=== PATIENT | female | born 1940 | race Caucasian/White ===

== ENCOUNTER 2017-08-21 11:32 | Emergency (ER) | payer OTHER ==
[~2017-08-21 11:32] MED LIST: AMOX TR-K CLV 875-12; AUGMENTIN 875 M1 TAB PO; LOSARTAN POTASS25 MG PO; METFORMIN HCL500 MG PO; TRAMADOL HCL50 MG; WELLBUTRIN XL150 MG
[2017-08-21 11:59] LABS: ABSOLUTE BASOPHIL COUNT 0 /CUMM (0.0-0.2); ABSOLUTE EOSINOPHIL COUNT 0.1 /CUMM (0.0-0.7); ABSOLUTE GRANULOCYTE CT 5.8 /CUMM (1.4-6.5); ABSOLUTE LYMPH COUNT 1.1 /CUMM (1.2-3.4); ABSOLUTE MONOCYTE COUNT 0.6 /CUMM (0.10-0.60); BASOPHIL % 0.2 % (0.0-2.0); EOSINOPHIL % 1.1 % (0-5); GRANULOCYTE % 76.1 % (42.2-75.2); HEMATOCRIT 45.7 % (37-47); MEAN CORPUSCULAR HGB 32.6 PG (27.0-31.0); MEAN CORPUSCULAR HGB CONC 33.8 G/DL (33.0-37.0); MEAN CORPUSCULAR VOLUME 96.7 FL (81.0-99.0); MEAN PLATELET VOLUME 7.6 FL (7.4-10.4); PLATELET COUNT 179 /CUMM (130-400); RED BLOOD CELL CT 4.73 /CUMM (4.20-5.40); WHITE BLOOD CELL COUNT 7.7 /CUMM (4.8-10.8)
--- NOTE | 2017-08-21 13:57 | ED AMS/SEIZURE/WEAK/DIZZY ---
History of Present Illness General Chief Complaint: General Adult Stated Complaint: ELEVATED BLOOD SUGAR Source: patient Exam Limitations: no limitations Vital Signs & Intake/Output Vital Signs & Intake/Output Vital Signs Date Time Temp Pulse Resp B/P B/P Pulse O2 O2 Flow FiO2 Mean Ox Delivery Rate 08/21 1421 98.3 71 18 159/80 97 Room Air 08/21 1226 Room Air 08/21 1139 98.0 78 20 139/84 97 Allergies Coded Allergies: NO KNOWN ALLERGIES (01/21/12) Reconcile Medications Bupropion Hydrochloride (Wellbutrin XL) 150 MG T24 UNK (Reported) Losartan Potassium 25 MG TABLET 1 TAB PO DAILY UNK (Reported) Metformin Hydrochloride (Metformin HCl) 500 MG TAB 1 TAB PO BID DM (Reported) Triage Note: PER SON CHECKED SUGAR THIS AM, PT WAS "CONFUSED" ARRIVES TO ED ALERT BUT UNSURE OF EVENTS PT IS [place] PT BS AT HOME 198 Triage Nurses Notes Reviewed? yes Onset: Abrupt Duration: hour(s):, resolved prior to arrival Injury Environment: home HPI: 77 -old female is brought into the emergency room for further evaluation of confusion this morning and elevated blood sugar.patient has a history of baseline dementia but the son reports that she seemed to be increasingly confused. No strokelike symptoms have slurring of words or facial drooping. He took her blood sugar level and it was 198 at home. She is on currently 250 mg of metformin daily. She denies any chest pain fever chills vomiting headache lightheaded dizziness or abdominal pain. She has chronic shortness of breath secondary to emphysema. No recent falls or trauma. Denies any urinary symptoms. Comes in for further evaluation. (Timothy Cabello) Past History Travel History Traveled to [place] past 21 day No Medical History Any Pertinent Medical History? 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 No (Timothy Cabello) Review of Systems Review of Systems Constitutional: Reports: see HPI. EENTM: Reports: no symptoms. Respiratory: Reports: no symptoms. Cardiovascular: Reports: no symptoms. GI: Reports: no symptoms. Genitourinary: Reports: no symptoms. Musculoskeletal: Reports: no symptoms. Skin: Reports: no symptoms. Neurological/Psychological: Reports: see HPI. Hematologic/Endocrine: Reports: see HPI. Immunologic/Allergic: Reports: no symptoms. All Other Systems: Reviewed and Negative (Timothy Cabello) Physical Exam Physical Exam General Appearance: alert, awake, thin Head: atraumatic, normal appearance Eyes: Bilateral: normal appearance, EOMI. Ears, Nose, Throat: normal ENT inspection, hearing grossly normal Neck: normal inspection Respiratory: normal breath sounds, no respiratory distress Cardiovascular: regular rate/rhythm Gastrointestinal: soft, non-tender Back: normal inspection Extremities: no edema, normal inspection Neurologic/Psych: awake, alert Skin: intact, normal color Core Measures ACS in differential dx? No CVA/TIA Diagnosis No Sepsis Present: No Sepsis Focused Exam Completed? No (Timothy Cabello) Progress Differential Diagnosis: arrythmia, anemia, benign positional vertigo, CVA/stroke , dehydration, electrolyte imbalance, hypoglycemia, intracranial Hem., pneumonia , presyncope, sepsis, UTI/pyelo Plan of Care: Orders Procedure Date/time Status Consistent Carbohydrate 2 08/21 D Active Add-on Test (ER Only) 08/21 1253 Active EKG 08/21 1253 Active TROPONIN LEVEL 08/21 1146 Complete URINALYSIS 08/21 1142 Complete COMPREHENSIVE METABOLIC PANEL 08/21 1142 Complete CBC WITHOUT DIFFERENTIAL 08/21 1142 Complete ACETONE 08/21 1142 Complete Current Medications Sig/Louisa Start time Last Medication Dose Stop Time Status Admin Sodium Chloride 1,000 ML ONCE ONE 08/21 1400 AC 08/21 (Normal Saline 0.9%) 08/21 2039 1424 Laboratory Tests 08/21/17 1435: Urine Color YEL, Urine Clarity CLEAR, Urine pH 6.0, Ur Specific [place] 1.025, Urine Protein NEG, Urine Ketones NEG, Urine Nitrite NEG, Urine Bilirubin NEG, Urine Urobilinogen 0.2, Ur Leukocyte Esterase SMALL H, Ur Microscopic SEDIMENT EXAMINED, Urine WBC 1-3 H, Ur Epithelial Cells FEW, Urine Bacteria FEW H, Urine Hemoglobin NEG, Urine Glucose NEG 08/21/17 1146: Anion Gap 13, Estimated GFR > 60, BUN/Creatinine Ratio 27.8 H, Glucose 189 H, Calcium 9.7, Total Bilirubin 0.7, AST 28, ALT 35, Alkaline Phosphatase 95, Troponin I < 0.01, Total Protein 6.2 L, Albumin 3.6, Globulin 2.6, Albumin/ Globulin Ratio 1.4, CBC w Diff NO MAN DIFF REQ, RBC 4.73, MCV 96.7, MCH 32.6 H, MCHC 33.8, RDW 14.0, MPV 7.6, Gran % 76.1 H, Lymphocytes % 14.2 L, Monocytes % 8.4, Eosinophils % 1.1, Basophils % 0.2, Absolute Granulocytes 5.8, Absolute Lymphocytes 1.1 L, Absolute Monocytes 0.6, Absolute Eosinophils 0.1, Absolute Basophils 0, Acetone Level NEGATIVE Diagnostic Imaging: Viewed by Me: Radiology Read, CT Scan. Discussed w/RAD: Radiology Read, CT Scan. Radiology Impression: PATIENT: ADELINA FRITZ PRESENT AGE: 77 PATIENT ACCOUNT NO: [id number] : 39 LOCATION: [facility] ORDERING PHYSICIAN: Timothy REEDER SERVICE DATE: 08/21/17 EXAM TYPE : CAT - CT HEAD WO IV CONTRAST EXAMINATION: CT HEAD WITHOUT CONTRAST CLINICAL INFORMATION: Altered mental status. COMPARISON: CT head 02/19/2016. TECHNIQUE: Contiguous axial imaging was performed from the skull base to vertex without intravenous administration of contrast. DLP: 616.59 mGy-cm FINDINGS: There is no acute intracranial hemorrhage or abnormal extra-axial collection. No intracranial mass effect or midline shift. There is disproportionate extra vacuo enlargement of the temporal horns of the lateral ventricles that raises the question of temporal lobe focused neurodegeneration. Ill-defined foci of hypoattenuation are visualized within the periventricular white matter most likely represent a chronic manifestation of small vessel ischemia. Grossly no evidence of acute territorial infarct. The calvarium and skull base are intact. Mastoid air cells and middle ear cavities are well-aerated. Visualized paranasal sinuses are well aerated. IMPRESSION: There is disproportionate enlargement of the temporal horns of the lateral ventricles that appears more pronounced than the findings that were demonstrated on the CT scan of the head from 02/19/2016. 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 Chronic small vessel ischemic changes within the periventricular white matter are redemonstrated. Otherwise no acute finding. No evidence of acute territorial infarct or hemorrhage. DICTATED BY: Hi Tolliver MD DATE/TIME DICTATED:08/21/171402 MANAGER OF GLOBAL:ADONIS DATE/ TIME TRANSCRIBED:08/21/171402 CONFIDENTIAL, DO NOT COPY WITHOUT APPROPRIATE AUTHORIZATION. <Electronically signed in Other Vendor System> SIGNED BY: Hi Tolliver MD 08/21/17 1421 Initial ED EKG: normal sinus rhythm, rate (73), nonspecific ST T wave chg (Timothy Cabello) Departure Departure Disposition: HOME OR SELF CARE Condition: Stable Clinical Impression Primary Impression: Hyperglycemia Secondary Impressions: Confusion Referrals: Gabriel OWEN,Trevon Aj MD,Chapin Lara (PCP/Family) Additional Instructions: Increase metformin to 500 mg daily. Follow-up with primary care doctor. Follow -up with neurologist provided. Return if any other concerns worsening symptoms. Please go over all results of today's visit with your primary care doctor. Contact your primary care doctor to let them know you were here in the emergency room. There may be nonspecific findings which may not be related to your visit today here in the emergency room but may require further evaluation and chronic monitoring by your primary care doctor. If you had a laceration today the chance of foreign body always remains. You should follow-up with your primary care doctor for recheck in 3-5 days for a wound check. If you had an x-ray done there is a chance that a fracture could have been missed on initial read and you should follow-up with your primary care doctor for repeat x-rays if symptoms persist. If your blood pressure was elevated here in the emergency room please have rechecked by [facility] primary care doctor within the next 48. If you were prescribed a narcotic here in the emergency room or any type of controlled substances you're not allowed to drive while taking this medication or operate any type of heavy machinery. Narcotics can make you feel lightheaded dizziness nausea and can cause constipation. You may need to pick up man a stool softener. Thank you for choosing [facility] emergency room. Please return to the emergency room immediately if you have any other concerns worsening of symptoms. Departure Forms: Customer Survey General Discharge Information Comments 08/21/2017 4:24:54 PM Patient clinically looks well. Patient is in no apparent distress. Nontoxic- appearing. Able to ambulate here in the emergency room. She is at her normal baseline function. Symptoms are not concerning for TIA. I feel patient is stable for discharge. Patient was seen and evaluated by Dr. Chapin. Referred to neurology. No acute findings. Results of the CT scan were discussed with the patient and family. She is safe for discharge at this time. (Brandon REEDER,Timothy) PA/GRAB SETTER Co-Sign Statement Statement: ED Attending supervision documentation- [X] I saw and evaluated the patient. I have also reviewed all the pertinent lab results and diagnostic results. I agree with the findings and the plan of care as documented in the PA's/GRAB SETTER's documentation. Patient presents for evaluation of worsening confusion. Physical examination reveals nonfocal neurologic examination. [] I have reviewed the ED Record and agree with the PA's/GRAB SETTER's documentation. [] Additions or exceptions (if any) to the PAs/GRAB SETTER's note and plan are summarized below: [] (Dari OWEN,Rickie Melendrez)
--- NOTE | 2017-08-21 14:20 | RADIOLOGY REPORT ---
EXAMINATION: XR PORTABLE CHEST CLINICAL INFORMATION: Shortness of breath. COMPARISON: Chest CT 02/23/2016. TECHNIQUE: Portable frontal view of the chest was obtained. FINDINGS: The lungs are hyperexpanded and the diaphragms are flattened compatible with changes related to COPD. There is mild coarsening of the background interstitial markings. The lungs are grossly clear without consolidation, edema, effusion, or pneumothorax. There is redemonstration of a calcified granuloma in the left midlung zone measuring 5 mm. The cardiomediastinal silhouette is within normal limits. There is levoscoliotic curvature at the thoracolumbar junction. IMPRESSION: Background changes of COPD. No active disease in the chest. Stable 5 mm calcified granuloma left midlung zone.
--- NOTE | 2017-08-21 14:21 | CT SCAN REPORT ---
EXAMINATION: CT HEAD WITHOUT CONTRAST CLINICAL INFORMATION: Altered mental status. COMPARISON: CT head 02/19/2016. TECHNIQUE: Contiguous axial imaging was performed from the skull base to vertex without intravenous administration of contrast. DLP: 616.59 mGy-cm FINDINGS: There is no acute intracranial hemorrhage or abnormal extra-axial collection. No intracranial mass effect or midline shift. There is disproportionate extra vacuo enlargement of the temporal horns of the lateral ventricles that raises the question of temporal lobe focused neurodegeneration. Ill-defined foci of hypoattenuation are visualized within the periventricular white matter most likely represent a chronic manifestation of small vessel ischemia. Grossly no evidence of acute territorial infarct. The calvarium and skull base are intact. Mastoid air cells and middle ear cavities are well-aerated. Visualized paranasal sinuses are well aerated. IMPRESSION: There is disproportionate enlargement of the temporal horns of the lateral ventricles that appears more pronounced than the findings that were demonstrated on the CT scan of the head from 02/19/2016. 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 Chronic small vessel ischemic changes within the periventricular white matter are redemonstrated. Otherwise no acute finding. No evidence of acute territorial infarct or hemorrhage.
[2017-08-21 16:50] VITALS: BP 148/81
== END 2017-08-21 16:55 ==
LOC: ERH 11:32
PROVIDERS: Emergency Medicine
DX: R41.0 Disorientation, unspecified (principal); E11.65 Type 2 diabetes mellitus with hyperglycemia
CPT/HCPCS: 71045; 81001; 93005; 93010

== ENCOUNTER 2017-10-29 16:45 | Emergency (ER) | payer OTHER ==
[~2017-10-29] VITALS: Ht 154.9 cm; Wt 45.4 kg
[2017-10-29] MEDS ORDERED: ASPIRIN EC81 M1 PO (17:01)
[2017-10-29] MEDS ORDERED: VITAMIN D31000 UNI2 PO (17:02)
[2017-10-29 17:31] LABS: ABSOLUTE BASOPHIL COUNT 0 /CUMM (0.0-0.2); ABSOLUTE EOSINOPHIL COUNT 0.1 /CUMM (0.0-0.7); ABSOLUTE GRANULOCYTE CT 4.4 /CUMM (1.4-6.5); ABSOLUTE LYMPH COUNT 1.3 /CUMM (1.2-3.4); ABSOLUTE MONOCYTE COUNT 0.7 /CUMM (0.10-0.60); BASOPHIL % 0.3 % (0.0-2.0); EOSINOPHIL % 1.9 % (0-5); GRANULOCYTE % 67.3 % (42.2-75.2); HEMATOCRIT 40.6 % (37-47); MEAN CORPUSCULAR HGB 32.2 PG (27.0-31.0); MEAN CORPUSCULAR HGB CONC 34.1 G/DL (33.0-37.0); MEAN CORPUSCULAR VOLUME 94.3 FL (81.0-99.0); MEAN PLATELET VOLUME 7.7 FL (7.4-10.4); PLATELET COUNT 195 /CUMM (130-400); RBC DISTRIBUTION WIDTH 13.7 % (11.5-14.5); RED BLOOD CELL CT 4.31 /CUMM (4.20-5.40); WHITE BLOOD CELL COUNT 6.6 /CUMM (4.8-10.8)
--- NOTE | 2017-10-29 18:08 | RADIOLOGY REPORT ---
EXAMINATION: XR CHEST CLINICAL INFORMATION: Altered mental status. COMPARISON: Chest x-ray 08/21/2017 TECHNIQUE: 2 views of the chest were obtained. FINDINGS: There is emphysematous hyperlucency of lungs. There is a stable calcified granuloma in the left midlung. There is no acute abnormality of the chest. There is no infiltrate. There is no pulmonary vascular congestion. There is no pleural effusion or pneumothorax. The cardiac and the mediastinal contours are normal. There are calcifications of aortic arch. There is multilevel degenerative spondylosis of the dorsal spine. IMPRESSION: No acute abnormality of the chest.
--- NOTE | 2017-10-29 20:06 | ED GENERAL ADULT ---
History of Present Illness General Chief Complaint: Altered Mental Status Stated Complaint: PER SONS AMS, REQUESTING EVAL Source: family Exam Limitations: confusion, dementia, poor historian Vital Signs & Intake/Output Vital Signs & Intake/Output Vital Signs Date Time Temp Pulse Resp B/P B/P Pulse O2 O2 Flow FiO2 Mean Ox Delivery Rate 10/29 2029 98.7 78 18 154/76 95 Room Air 10/29 2028 95 Room Air 10/29 1657 98.6 80 18 163/82 98 Room Air Allergies Coded Allergies: NO KNOWN ALLERGIES (01/21/12) Reconcile Medications Aspirin (Ecotrin*) 81 MG TABLET.DR 1 TAB PO DAILY HEART (Reported) Bupropion Hydrochloride (Wellbutrin XL) 150 MG T24 UNK (Reported) Cholecalciferol (Vitamin D3) 1,000 UNIT TABLET 2 TAB PO DAILY SUPPLEMNT ( Reported) Losartan Potassium 25 MG TABLET 1 TAB PO DAILY UNK (Reported) Metformin Hydrochloride (Metformin HCl) 500 MG TAB 1 TAB PO BID DM (Reported) Nitrofurantoin Monohyd/M-Cryst (Macrobid 100 MG Capsule) 100 MG CAPSULE 1 CAP PO BID UTI with food Triage Note: 77 YO FEMALE TO TRIAGE WITH SONS FOR EVAL OF AMS X2 WEEKS THAT HAS SLOWLY BEEN GETTING WORSE. PER SONS, PT IS AGGRESSIVE AT THIS TIME. PT HX OF DEMENITA. PT DENIES ANY S/S. PT A&O X2 AT THIS TIME, UNSURE OF YEAR. PER SONS, THEY SAW DR ANTHONY LAST WEEK AND HE THINKS TALKED WITH THE FAMILY ABOUT ?DIET CONSULTANT CARE. Triage Nurses Notes Reviewed? yes HPI: Patient is a 77-year-old female with past medical history of dementia who is brought in by her son at the instruction of her PCP for approximately 2 weeks of gradually worsening confusion and aggressive behavior. She is being worked up for possible placement for her dementia, but this has been above her baseline. Past History Travel History Traveled to [place] past 21 day No Medical History Any Pertinent Medical History? 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 Yes Review of Systems Review of Systems Constitutional: Reports: see HPI. Comments Other than the features mentioned in history of present illness above, a detailed review of systems was not possible secondary to the patient's dementia and confusion Physical Exam Physical Exam General Appearance: no apparent distress, alert, awake, comfortable Comments: HEENT: Inspection of the head reveals a normocephalic cranium with no signs of trauma. Ophtho: Extraocular muscles are intact and pupils are equal and reactive to light bilaterally with no afferent pupillary defect. The sclera are noninjected , and there is no obvious discharge. Neck: The trachea is midline, there is no obvious asymmetry or mass over the thyroid, and there is no wincing on palpation of the midline cervical spine. Respiratory: The lungs are clear and equal to auscultation bilaterally without wheezes, rales, or rhonchi. The patient exhibits no signs of labored breathing. Cardiac: Regular rhythm and non-tachycardic without appreciable murmurs on auscultation. No obvious JVD. GI: Examination of the abdomen reveals no significant wincing on deep palpation. : Deferred Neuro: Focused neurologic examination was attempted, but secondary to the patient's confusion and dementia, it was extremely limited. Features that were obtainable included equal pupils and a lack of gross focal motor abnormality on patient's limited passive motion. Behavioral: Calm. Dermatologic: Dermatologic examination reveals no diffuse rashes or exanthems, no petechiae, no ecchymoses, and no other signs of erythema or infection. Core Measures ACS in differential dx? No CVA/TIA Diagnosis: No Sepsis Present: No Sepsis Focused Exam Completed? No Progress Differential Diagnoses I considered the following diagnoses in my evaluation of the patient: Dementia, UTI, pneumonia, sepsis, electrolyte abnormality, multiple other possibilities. Plan of Care: Orders Procedure Date/time Status URINALYSIS 10/29 1701 Complete TROPONIN LEVEL 10/29 1701 Complete COMPREHENSIVE METABOLIC PANEL 10/29 1701 Complete CBC WITHOUT DIFFERENTIAL 10/29 1701 Complete EKG 10/29 1701 Active Laboratory Tests 10/29/17 1858: Urine Color YEL, Urine Clarity HAZY H, Urine pH 6.0, Ur Specific [place] >= 1.030, Urine Protein NEG, Urine Ketones NEG, Urine Nitrite NEG, Urine Bilirubin NEG, Urine Urobilinogen 0.2, Ur Leukocyte Esterase MOD H, Ur Microscopic SEDIMENT EXAMINED, Urine RBC 5-10 H, Urine WBC 50-75 H, Ur Epithelial Cells MANY H, Hyaline Casts FEW H, Urine Mucus FEW, Urine Hemoglobin TRACE-INTACT, Urine Glucose NEG 10/29/17 1711: Anion Gap 9, Estimated GFR 54 L, BUN/Creatinine Ratio 30.0 H, Glucose 101 H, Calcium 9.8, Total Bilirubin 0.2, AST 27, ALT 31, Alkaline Phosphatase 91, Troponin I < 0.01, Total Protein 6.1 L, Albumin 3.7, Globulin 2.4, Albumin/ Globulin Ratio 1.5, CBC w Diff NO MAN DIFF REQ, RBC 4.31, MCV 94.3, MCH 32.2 H, MCHC 34.1, RDW 13.7, MPV 7.7, Gran % 67.3, Lymphocytes % 19.7 L, Monocytes % 10.8 H, Eosinophils % 1.9, Basophils % 0.3, Absolute Granulocytes 4.4, Absolute Lymphocytes 1.3, Absolute Monocytes 0.7 H, Absolute Eosinophils 0.1, Absolute Basophils 0 CXR Impression: no acute abnormality Initial ED EKG: none Comments: Elderly, demented female being worked up for likely ECF placement brought in by her son today with acute on chronic confusion, worsening over the past 2 weeks. Examination was unremarkable except for her confusion which her son states is worse than baseline. However, she is otherwise stable and in no acute distress. No septic vital signs. Laboratory studies were unremarkable, chest x-ray was clear, but urinalysis was positive. Discussed the likelihood of urinary tract infection with her son, who understands and was relieved to have a potential reason for her worsening confusion. We discussed hospitalization, but they declined and requested to return home with antibiotics. They will call her primary care physician tomorrow for reassessment and to follow up on culture results to ensure and confirmed the diagnosis. Definitive diagnosis is not yet clear at the time of ED discharge, however I do not feel that the patient requires a mandatory head CT or other advanced workup this evening, nor does she seem to require hospitalization. Medical screening examination otherwise negative, patient stable at time of discharge. Nitrofurantoin selected for antibiosis, will be tailored by PCP. Departure Departure Time of Disposition: 2035 Disposition: HOME OR SELF CARE Condition: Stable Clinical Impression Primary Impression: Urinary tract infection Qualifiers: Urinary tract infection type: site unspecified Hematuria presence: with hematuria Qualified Codes: N39.0 - Urinary tract infection, site not specified; R31.9 - Hematuria, unspecified Referrals: Jean Marie OWEN,Chapin Lara (PCP/Family) Additional Instructions: Please begin taking the antibiotic that we prescribed to [facility], and call your primary physician for follow-up tomorrow morning. There is a urine culture pending, and your primary doctor will follow-up on these results in the next 2-3 days to confirm whether or not you indeed do have a urinary tract infection, as well as whether the antibiotics we prescribed are indeed the correct once. Return to the emergency department for any new or worsening symptoms. Departure Forms: Customer Survey General Discharge Information Prescriptions: Current Visit Scripts Nitrofurantoin Monohyd/M-Cryst (Macrobid 100 MG Capsule) 1 CAP PO BID #[id number] CAP with food Critical Care Note Critical Care Note Critical Care Time: non-applicable
[2017-10-29 20:30] VITALS: BP 154/76
[2017-10-29] MEDS ORDERED: MACROBID 100 M100 MG PO (20:38)
[2017-10-30] MEDS ORDERED: MEMANTINE HCL5 MG PO (10:53)
[2017-10-30] MEDS ORDERED: PREDNISONE5 M1 PO (15:53)
[2017-10-30] MEDS ORDERED: METFORMIN HCL500 M3 PO (15:53)
[2017-10-30] MEDS ORDERED: LOSARTAN POTASS25 M1 PO (15:55)
[2017-10-30] MEDS ORDERED: BUPROPION XL300 M1 PO (15:56)
[2017-10-30] MEDS ORDERED: RETAINE MGD EY1 EACH OU (15:57)
[2017-10-30] MEDS ORDERED: VITAMIN D2000 UNIT PO (15:57)
== END 2017-10-29 20:47 ==
LOC: ERH 16:45
PROVIDERS: Physician Assistant
DX: N39.0 Urinary tract infection, site not specified (principal); R41.0 Disorientation, unspecified; F03.91 Unspecified dementia, unspecified severity, with behavioral disturbance; E11.9 Type 2 diabetes mellitus without complications; I10 Essential (primary) hypertension; Z79.84 Long term (current) use of oral hypoglycemic drugs
CPT/HCPCS: 71046; 81001; 93005; 93010

== ENCOUNTER 2017-10-29 22:45 | Observation (INO) | payer OTHER ==
[~2017-10-29] VITALS: Ht 152.4 cm; Wt 40.8 kg
[~2017-10-29 22:45] MED LIST changes: +ASPIRIN EC81 M1 PO; +MACROBID 100 M100 MG PO; +VITAMIN D31000 UNI2 PO
--- NOTE | 2017-10-29 22:58 | ED GENERAL ADULT ---
History of Present Illness General Chief Complaint: Altered Mental Status Stated Complaint: AMS Source: family, EMS Exam Limitations: confusion, dementia, poor historian Vital Signs & Intake/Output Vital Signs & Intake/Output Vital Signs Date Time Temp Pulse Resp B/P B/P Pulse O2 O2 Flow FiO2 Mean Ox Delivery Rate 10/29 2253 98.4 74 18 148/69 98 Room Air Room Air Allergies Coded Allergies: NO KNOWN ALLERGIES (01/21/12) Reconcile Medications Aspirin (Ecotrin*) 81 MG TABLET.DR 1 TAB PO DAILY HEART (Reported) Bupropion Hydrochloride (Wellbutrin XL) 150 MG T24 UNK (Reported) Cholecalciferol (Vitamin D3) 1,000 UNIT TABLET 2 TAB PO DAILY SUPPLEMNT ( Reported) Losartan Potassium 25 MG TABLET 1 TAB PO DAILY UNK (Reported) Metformin Hydrochloride (Metformin HCl) 500 MG TAB 1 TAB PO BID DM (Reported) Nitrofurantoin Monohyd/M-Cryst (Macrobid 100 MG Capsule) 100 MG CAPSULE 1 CAP PO BID UTI with food Triage Nurses Notes Reviewed? yes HPI: Patient is a 77-year-old female with history of dementia and a diagnosis made by me earlier today of urinary tract infection who is brought back in today by EMS after confusion at home became unmanageable according to her son. She was demanding to leave and attempted to walk out her front door in order to "go home ," despite the fact that she was already in her house. They do not feel she is safe to remain home alone, and her son is unable to stay with her. Please refer to my prior note for further details of the case and for results of her blood work, chest x-ray, and urinalysis. Past History Travel History Traveled to [place] past 21 day No Medical History Any Pertinent Medical History? see below for history Neurological: dementia EENT: NONE Cardiovascular: hypertension Respiratory: emphysema Gastrointestinal: NONE Hepatic: NONE Renal: NONE Musculoskeletal: NONE Psychiatric: depression Endocrine: diabetes Blood Disorders: NONE Cancer(s): NONE AMBULATORY CARE/Reproductive: NONE Tetanus Vaccine: 02/19/16 Surgical History Surgical History: non-contributory Psychosocial History What is your primary language Chadian Family History Hx Contributory? No Review of Systems Review of Systems Constitutional: Reports: see HPI. Comments Other than the features mentioned in history of present illness above, a detailed review of systems was not possible secondary to the patient's confusion and dementia Physical Exam Physical Exam General Appearance: well developed/nourished, no apparent distress, alert, awake Comments: HEENT: Inspection of the head reveals a normocephalic cranium with no signs of trauma. Ophtho: Extraocular muscles are intact and pupils are equal and reactive to light bilaterally with no afferent pupillary defect. The sclera are noninjected , and there is no obvious discharge. Neck: The trachea is midline, there is no obvious asymmetry or mass over the thyroid, and there is no wincing on palpation of the midline cervical spine. Respiratory: The lungs are clear and equal to auscultation bilaterally without wheezes, rales, or rhonchi. The patient exhibits no signs of labored breathing. Cardiac: Regular rhythm and non-tachycardic without appreciable murmurs on auscultation. No obvious JVD. GI: Examination of the abdomen reveals no significant wincing on deep palpation. : Deferred Neuro: Focused neurologic examination was attempted, but secondary to the patient's confusion and dementia, it was extremely limited. Features that were obtainable included equal pupils and a lack of gross focal motor abnormality on patient's limited passive motion. Behavioral: Calm. Dermatologic: Dermatologic examination reveals no diffuse rashes or exanthems, no petechiae, no ecchymoses, and no other signs of erythema or infection. Core Measures ACS in differential dx? No CVA/TIA Diagnosis: No Sepsis Present: No Sepsis Focused Exam Completed? No Progress Differential Diagnoses I considered the following diagnoses in my evaluation of the patient: UTI with worsening confusion, effects of dementia, sepsis, electrolyte abnormalities, multiple other possibilities. Plan of Care: Orders Procedure Date/time Status Regular Diet 10/[address] in observation 10/29 2299 Active ED Holding Orders 10/29 2299 Active Code Status 10/29 2299 Active Given the patient's acute on chronic worsening confusion superimposed on top of her dementia secondary to urinary tract infection diagnosed earlier today, my plan is to hospitalize her for UTI with worsening confusion, with the possibility that she may need to be placed in an ECF from the hospital. Initial ED EKG: none Comments: Please see prior note for laboratory and urinalysis results. Hospitalized in hemodynamically stable condition. Departure Departure Time of Disposition: 2254 Disposition: STILL A PATIENT Condition: Stable Clinical Impression Primary Impression: Urinary tract infection Qualifiers: Urinary tract infection type: acute cystitis Hematuria presence: with hematuria Qualified Code: N30.01 - Acute cystitis with hematuria Referrals: Jean Marie OWEN,Chapin Lara (PCP/Family) Departure Forms: Customer Survey General Discharge Information Observation Note Spoke With: Larry OWEN,Jorge Luis Physician Advisor Notified: NAGI SEXTON DO Place Patient In: Non-ED OBS Care Area Rationale for Observation: My rational for observation is as follows patient is not safe to perform her activities of daily living at home given her worsening confusion. I feel that she requires hospitalization under observation status for intravenous antibiotics and monitoring of her clinical progress. Critical Care Note Critical Care Note Critical Care Time: non-applicable
--- NOTE | 2017-10-29 23:41 | History & Physical ---
See Addendum Elodia Cook 10/29/17 2580: General Information and HPI MD Statement: I have seen and personally examined ADELINA FRITZ and documented this H&P. The patient is a 77 year old F who presented with a patient stated chief complaint of []. Source of Information: patient, family Exam Limitations: no limitations History of Present Illness: 77 year old female with PMH DM, HTN, emphysema, Depression, Dementia presenting to the ED for a second time tonight with AMS and UTI. Patient was seen and discharged on Nitrofurantoin earlier in the evening. Per her son and daughter who are at bedside, the patient became increasingly confused when she arrived home. She was asking to be taken home when she was already home. She got up to walk out the door and pushed her son when he tried to prevent her from leaving. They brought her back to the ED for this reason. Per children, the patient has been more confused for about two weeks with today being the most confused. She denies any fever, chills, n/v/d, chest pain, SOB, dysuria, frequency, abdominal pain. Allergies/Medications Allergies: Coded Allergies: NO KNOWN ALLERGIES (01/21/12) Home Med list Aspirin (Ecotrin*) 81 MG TABLET.DR 1 TAB PO DAILY HEART (Reported) Bupropion Hydrochloride (Wellbutrin XL) 150 MG T24 UNK (Reported) Cholecalciferol (Vitamin D3) 1,000 UNIT TABLET 2 TAB PO DAILY SUPPLEMNT ( Reported) Losartan Potassium 25 MG TABLET 1 TAB PO DAILY UNK (Reported) Metformin Hydrochloride (Metformin HCl) 500 MG TAB 1 TAB PO BID DM (Reported) Nitrofurantoin Monohyd/M-Cryst (Macrobid 100 MG Capsule) 100 MG CAPSULE 1 CAP PO BID UTI with food Past History Travel History Traveled to [place] past 21 day No Medical History Neurological: dementia EENT: NONE Cardiovascular: hypertension Respiratory: emphysema Gastrointestinal: NONE Hepatic: NONE Renal: NONE Musculoskeletal: NONE Psychiatric: depression Endocrine: diabetes Blood Disorders: NONE Cancer(s): NONE 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 Home Who Do You Live With? child Services at Home: Home Health Aide Primary Language: Khmer Smoking Status: Current Everyday Smoker ETOH Use: denies use Illicit Drug Use: denies illicit drug use Employment History Employment Retired ([employer] ) Review of Systems Review of Systems Constitutional: Reports: no symptoms. EENTM: Reports: no symptoms. Cardiovascular: Reports: no symptoms. Respiratory: Reports: no symptoms. GI: Reports: no symptoms. Genitourinary: Reports: no symptoms. Musculoskeletal: Reports: no symptoms. Skin: Reports: no symptoms. Exam & Diagnostic Data Last 24 Hrs of Vital Signs/I&O Vital Signs Date Time Temp Pulse Resp B/P B/P Pulse O2 O2 Flow FiO2 Mean Ox Delivery Rate 10/30 0022 98.4 82 149/67 10/29 2253 98.4 74 18 148/69 98 Room Air Room Air Intake & Output 10/30 0800 10/30 0000 10/29 1600 Intake Total 0 Output Total Balance 0 Intake, Oral 0 Patient 90 lb 89 lb 15.99 oz Weight Weight Estimated Measurement Method Physical Exam General Appearance Alert, Oriented X3, Cooperative, No Acute Distress Skin No Rashes Skin Temp/Moisture Exam: Warm/Dry HEENT Atraumatic, PERRLA Neck Supple Cardiovascular Regular Rate, Normal S1, Normal S2, No Murmurs Lungs Clear to Auscultation Abdomen Normal Bowel Sounds, Soft, No Tenderness Extremities No Edema, Normal Pulses Assessment/Plan Assessment: 77 year old female with PMH DM, HTN, emphysema, Depression, Dementia presenting to the ED for a second time tonight with AMS and UTI. Patient was seen and discharged on Nitrofurantoin earlier in the evening. Per her son and daughter who are at bedside, the patient became increasingly confused when she arrived home. She was asking to be taken home when she was already home. She got up to walk out the door and pushed her son when he tried to prevent her from leaving. They brought her back to the ED for this reason. Patient will be placed on observation with continued care on the general medicine service: Problem List: 1. AMS 2. UTI 3. Dehydration Admission Data: VS T98.4 P74 RR18 BP148/69 Labs: WBC 6.6 H/H 13.9/40.6 Plt 195 Na 138 K4.5 BUN/Cr 30/1.0 Hgb A1C 6.3 UA: Moderate leukocyte esterase; high epithelial cells; negative nitrites ED tx: 1g Ceftriaxone #AMS likely 2/2 UTI in elderly female -continue to monitor for resolution to baseline with abx tx for UTI #UTI -Ceftriaxone -Repeat UA as ED sample contaminated with epithelial cells -Urine C&S; taper abx appropriately #Dehydration-likely 2/2 decreased PO intake with AMS and infection -IV fluids NS @50cc hour -continue to monitor #Chronic medical problems -SSI for DM; finger sticks DVT prophylaxis: heparin 5000units subcu/ALPS/ambulation Code status: FC As Ranked By This Provider Problem List: 1. Urinary tract infection Qualifiers Urinary tract infection type: acute cystitis Hematuria presence: with hematuria Qualified Code: N30.01 - Acute cystitis with hematuria 2. Confusion Core Measures/Misc (11/26) Acute Coronary Syndrome ACS Diagnosis: No Congestive Heart Failure Congestive Heart Failure Diagnosis No Cerebrovascular Accident CVA/TIA Diagnosis: No VTE (View Protocol) VTE Risk Factors Acute Medical Illness No Mechanical VTE Prophylaxis d/t N/A MechProphylax Ordered No VTE Pharm Prophylaxis d/t NA PharmProphylax ordered Sepsis (View protocol) Sepsis Present: No If YES complete Sepsis Event Note If YES complete Sepsis Event Note Keron Kahn 10/30/17 0330: Core Measures/Misc (11/26) Sepsis (View protocol) If YES complete Sepsis Event Note If YES complete Sepsis Event Note Resident Review Statement Resident Statement: examined this patient, discussed with director international, agreed with director international, discussed with family, reviewed EMR data (avail), discussed with nursing , discussed with case mgmt, reviewed images, amended to note Other Findings: This is a 77-year-old female with past medical history significant for COPD, emphysema, depression, dementia, hypertension, diabetes was brought in by family members to the ER with chief complaint of altered mental status and confusion. Patient was seen at [facility] on 10/29/2017, found to have abnormal UA, discharged on nitrofurantoin antibiotics for urinary tract infection. However according to the family members who were at bedside, patient became increasingly confused after reaching home. She was asking to be taken home when she was already home. She pushed her son and she became combative and agitated. Family brought her back to the emergency room for acute on chronic worsening of mental status. off notew family mentioned that she has on and off episodes of confusion however she looks more confused today. Patient denies any fever, chills, chest pain, short of breath, cough, nausea, vomiting, abdominal pain, change in bladder or bowel habits. She denies any frequency, urgency, dysuria, lower abdominal pain. She denies illicit drug abuse, alcohol abuse. She still continues to smoke 10 cigarettes per day. VS T98.4 P74 RR18 BP148/69 Labs: WBC 6.6 H/H 13.9/40.6 Plt 195 Na 138 K4.5 BUN/Cr 30/1.0 Hgb A1C 6.3 UA: Moderate leukocyte esterase; high epithelial cells; negative nitrites ED tx: 1g Ceftriaxone ---- 1. Altered mental status secondary to urinary tract infection Patient was brought in by family members for acute on chronic worsening of mental status. She was found to have abnormal UA on exam, positive for esterase , WBC, bacteria. She was given 1 dose of ceftriaxone the emergency room. Acute change in mental status most likely from urinary tract infection. * [facility] * Monitor vitals every shift * Monitor for fever, leukocytosis * Continue IV ceftriaxone * Follow-up urine culture and sensitivity * Adjust antibiotics based on urine cultures * Try to avoid delirium triggering agents * IV fluids * Fall precautions Diabetes mellitus NovoLog sliding scale and fingersticks Hypertension continue losartan 25 daily Continue baby aspirin 81 daily Depression continue bupropion 150 daily COPD TRC nebs Full code DVT prophylaxis subcu heparin consistent carbohydrate 3 diet Pain pathway ordered Jorge Luis Juarez MD 10/30/17 0658: Core Measures/Misc (11/26) Sepsis (View protocol) If YES complete Sepsis Event Note If YES complete Sepsis Event Note Attending MD Review Statement Attending Statement Attending MD Statement: examined this patient, discuss w/resident/PA/FURNITURE REFINISHER, agreed w/resident/PA/FURNITURE REFINISHER Attending Assessment/Plan: Patient is seen and examined independently by me. Care plan discussed with medical authorization specialist and resident. I agree with the physical exam findings and plan of care as outlined above with the following changes and additions. 77 yo F with history of dementia, COPD, chronic smoker, HTN, DM, presented with increasing confusion for 1 week. Patient was in the ED earlier. She was discharged on Macrobid with concern for UTI. After patient returned home, she has more confusion and now brought back to ED by her son. As per family, patient has no fever, chills, chest pain, SOB, productive cough, abdominal pain, nausea, vomiting, diarrhea or dysuria. However, she has decreased oral intake. On abdominal exam, bowel sound present, soft, NTND. No CV tenderness. Lab from 1st ED visit showed WBC 6.6. UA shows 50-75 WBC and many epithelial cell. CXR showed no acute infiltrate or edema. In the 2nd ED visit, patient is afebrile. She got ceftriaxone 1 g and NS 1 L IV in the ED. Patient is placed on observation in Gen Med for acute delirium and UTI. Repeat UA and urine culture. Start ceftriaxone. Fall precaution and bed alarm. Social service evaluation for placement. Jorge Luis Juarez MD FACP
[2017-10-30 06:19] LABS: ABSOLUTE BASOPHIL COUNT 0 /CUMM (0.0-0.2); ABSOLUTE EOSINOPHIL COUNT 0.2 /CUMM (0.0-0.7); ABSOLUTE GRANULOCYTE CT 3.6 /CUMM (1.4-6.5); ABSOLUTE LYMPH COUNT 1.3 /CUMM (1.2-3.4); ABSOLUTE MONOCYTE COUNT 0.5 /CUMM (0.10-0.60); BASOPHIL % 0.3 % (0.0-2.0); EOSINOPHIL % 2.8 % (0-5); GRANULOCYTE % 64.7 % (42.2-75.2); HEMATOCRIT 43.2 % (37-47); MEAN CORPUSCULAR HGB 31.9 PG (27.0-31.0); MEAN CORPUSCULAR HGB CONC 33.4 G/DL (33.0-37.0); MEAN CORPUSCULAR VOLUME 95.5 FL (81.0-99.0); MEAN PLATELET VOLUME 7.8 FL (7.4-10.4); PLATELET COUNT 177 /CUMM (130-400); RBC DISTRIBUTION WIDTH 13.4 % (11.5-14.5); RED BLOOD CELL CT 4.53 /CUMM (4.20-5.40); WHITE BLOOD CELL COUNT 5.6 /CUMM (4.8-10.8)
[2017-10-30] MEDS ORDERED: MEMANTINE HCL5 MG PO (10:53)
--- NOTE | 2017-10-30 12:11 | PN- Att Addend ---
Attending Addendum Attending Brief Note 77 yo F with history of dementia, COPD, chronic smoker, HTN, DM, presented with increasing confusion for 1 week. Patient was in the ED earlier. She was discharged on Macrobid with concern for UTI. After patient returned home, she has more confusion and now brought back to ED by her son. As per family, patient has no fever, chills, chest pain, SOB, productive cough, abdominal pain, nausea, vomiting, diarrhea or dysuria. PE unremarkable. Vitals stable Patient is placed on observation in Gen [facility] for acute delirium and UTI. Follow UA and urine culture. c/w ceftriaxone. Inform Neurology, family requesting. Fall precaution and bed alarm. Social service evaluation for placement. Admission Lab Results I reviewed the following labs: Laboratory Tests 10/30 10/30 0600 0558 Chemistry Sodium (137 - 145 mmol/L) 141 Potassium (3.5 - 5.1 mmol/L) 4.1 Chloride (98 - 107 mmol/L) 105 Carbon Dioxide (22 - 30 mmol/L) 30 Anion Gap (5 - 16) 6 BUN (7 - 17 mg/dL) 22 H Creatinine (0.5 - 1.0 mg/dL) 0.7 Estimated GFR (>60 ml/min) > 60 BUN/Creatinine Ratio (7 - 25 %) 31.4 H Hematology CBC w Diff NO MAN DIFF REQ WBC (4.8 - 10.8 /CUMM) 5.6 RBC (4.20 - 5.40 /CUMM) 4.53 Hgb (12.0 - 16.0 G/DL) 14.4 Hct (37 - 47 %) 43.2 MCV (81.0 - 99.0 FL) 95.5 MCH (27.0 - 31.0 PG) 31.9 H MCHC (33.0 - 37.0 G/DL) 33.4 RDW (11.5 - 14.5 %) 13.4 Plt Count (130 - 400 /CUMM) 177 MPV (7.4 - 10.4 FL) 7.8 Gran % (42.2 - 75.2 %) 64.7 Lymphocytes % (20.5 - 51.1 %) 22.8 Monocytes % (1.7 - 9.3 %) 9.4 H Eosinophils % (0 - 5 %) 2.8 Basophils % (0.0 - 2.0 %) 0.3 Absolute Granulocytes (1.4 - 6.5 /CUMM) 3.6 Absolute Lymphocytes (1.2 - 3.4 /CUMM) 1.3 Absolute Monocytes (0.10 - 0.60 /CUMM) 0.5 Absolute Eosinophils (0.0 - 0.7 /CUMM) 0.2 Absolute Basophils (0.0 - 0.2 /CUMM) 0 Urines Urine Color Cancelled Urine Clarity Cancelled Urine pH Cancelled Ur Specific Vanz[place] Cancelled Urine Protein Cancelled Urine Ketones Cancelled Urine Nitrite Cancelled Urine Bilirubin Cancelled Urine Urobilinogen Cancelled Ur Leukocyte Esterase Cancelled Ur Microscopic Cancelled Urine Hemoglobin Cancelled Urine Glucose Cancelled 10/30 0057 Urines Urine Color (YEL,AMB,STR) YEL Urine Clarity (CLEAR) CLEAR Urine pH (5.0 - 8.0) 7.0 Ur Specific [place] (1.001 - 1.035) 1.010 Urine Protein (NEG,<30 MG/DL) NEG Urine Ketones (NEG) NEG Urine Nitrite (NEG) NEG Urine Bilirubin (NEG) NEG Urine Urobilinogen (0.1 - 1.0 EU/dl) 0.2 Ur Leukocyte Esterase (NEG) NEG Ur Microscopic EXAM NOT REQUIRED Urine Hemoglobin (NEG) NEG Urine Glucose (N MG/DL) NEG Admission Meds I reviewed the following Meds: Current Medications Sig/Louisa Start time Last Medication Dose Stop Time Status Admin Acetaminophen 650 MG Q6P PRN 10/30 0100 AC (Tylenol) Aspirin Buffered 81 MG DAILY 10/30 0900 AC 10/30 (Ecotrin) 0907 Bupropion HCl 150 MG DAILY 10/30 0900 AC 10/30 (Wellbutrin XL) 0907 Ceftriaxone Sodium 1,000 MG 0000 10/31 0000 AC (Rocephin) Heparin Sodium 5,000 UNIT Q8 10/30 0600 AC 10/30 (Porcine) 0559 Insulin Aspart 0 TIDAC 10/30 0330 AC (NovoLOG) Losartan Potassium 25 MG DAILY 10/30 0900 AC 10/30 (Cozaar) 0907 Sodium Chloride 1,000 ML Q20H 10/30 0100 AC 10/30 (Normal Saline 0.9%) 10/30
[2017-10-30] MEDS ORDERED: PREDNISONE5 M1 PO (15:53)
[2017-10-30] MEDS ORDERED: METFORMIN HCL500 M3 PO (15:53)
[2017-10-30] MEDS ORDERED: LOSARTAN POTASS25 M1 PO (15:55)
[2017-10-30] MEDS ORDERED: BUPROPION XL300 M1 PO (15:56)
[2017-10-30] MEDS ORDERED: VITAMIN D2000 UNIT PO (15:57)
[2017-10-30] MEDS ORDERED: RETAINE MGD EY1 EACH OU (15:57)
[2017-10-30 16:37] VITALS: BP 126/84
[2017-10-30 19:58] VITALS: BP 158/80
[2017-10-31 05:52] VITALS: BP 110/70
--- NOTE | 2017-10-31 07:28 | PN- Housestaff ---
Na Retana 10/31/17 0728: Subjective Follow-up For: UTI AMS Subjective: Patient was seen and examined at bedside. She was alert, oriented to time (knew it was 2018) but not to place ("i am here to sleep"). She is very pleasant with conversation. She does not remember how many children she has or the names of them. She does not remember what she had for dinner last night. She does not complain of fever, chills, nausea, vomiting. She does endorse that she has been feeling run down for about 2 weeks now. Review of Systems Constitutional: Reports: see HPI. Objective Last 24 Hrs of Vital Signs/I&O Vital Signs Date Time Temp Pulse Resp B/P B/P Pulse O2 O2 Flow FiO2 Mean Ox Delivery Rate 10/31 1431 97.7 87 18 108/64 96 Room Air 10/31 0851 138/60 10/31 0552 98.0 80 20 110/70 93 Room Air 10/30 1958 97.0 82 20 158/80 98 10/30 1637 98.7 76 18 126/84 98 Room Air Intake & Output 10/31 1600 10/31 0800 10/31 0000 Intake Total 20 Output Total 200 Balance 20 -200 Intake, IV 20 Output, Urine 200 Physical Exam General Appearance: Alert, Cooperative Assessment/Plan Assessment: 77 year old female with PMH DM, HTN, emphysema, Depression, Dementia presenting to the ED for a second time tonight with AMS and UTI. Patient was seen and discharged on Nitrofurantoin earlier in the evening. Per her son and daughter who are at bedside, the patient became increasingly confused when she arrived home. She was asking to be taken home when she was already home. She got up to walk out the door and pushed her son when he tried to prevent her from leaving. They brought her back to the ED for this reason. Patient will be placed on observation with continued care on the general medicine service: Problem List: 1. AMS 2. UTI 3. Dehydration Labs: WBC 6.6 H/H 13.9/40.6 Plt 195 Na 138 K4.5 BUN/Cr 30/1.0 Hgb A1C 6.3 Labs were not sent today Urine analysis was negative in the ED, possibly due to initiation of antiobitics. 1.AMS likely 2/2 UTI in elderly female -The p -continue to monitor for resolution to baseline with abx tx for UTI 2. UTI -Ceftriaxone -Urine C&S; taper abx appropriately 3. Dehydration-likely 2/2 decreased PO intake with AMS and infection -IV fluids NS @50cc hour -continue to monitor 4. Chronic medical problems -SSI for DM; finger sticks DVT prophylaxis: heparin 5000units subcu/ALPS/ambulation Code status: FC Problem List: 1. Urinary tract infection 2. Confusion 3. Hyperglycemia 4. Dementia Pain Ratin Pain Location: na Pain Goal: Remain pain free Pain Plan: na Tomorrow's Labs & Rationales: cbc and bep Yogesh Mcmahon 10/31/17 1030: Attending MD Review Statement Attending Statement Attending MD Statement: examined this patient, discuss w/resident/PA/WAXED BAG MACHINE OPERATOR, agreed w/resident/PA/WAXED BAG MACHINE OPERATOR, discussed with family, reviewed EMR data (avail), discussed with nursing, discussed with case mgmt, reviewed images, amended to note Attending Assessment/Plan: Patient seen/examined bedside. No new complaints. Patient has dementia at baseline. She is aaox 2-3 oriented with pleasant greetings. She is independent at home. Son is primary caregiver. She is receiving antibiotics for UTI. Her repeat UA and urine culture negative. Patient is medically stable and vital stable.
[2017-10-31 14:31] VITALS: BP 108/64
[2017-10-31 22:12] VITALS: BP 110/60
[2017-11-01 05:32] VITALS: BP 100/64; BP 120/70
--- NOTE | 2017-11-01 07:54 | PN- Housestaff ---
Na Retana 11/01/17 0754: Subjective Follow-up For: UTI Altered Mental Status Subjective: Patient was seen and examined at bedside. She had no active complaints. She denies fever, chills, nausea, vomiting, palpitations. Review of Systems Constitutional: Reports: see HPI. Objective Last 24 Hrs of Vital Signs/I&O Vital Signs Date Time Temp Pulse Resp B/P B/P Pulse O2 O2 Flow FiO2 Mean Ox Delivery Rate 11/01 0938 73 138/68 11/01 0532 97.7 80 20 100/64 95 Room Air 10/31 2212 98.1 76 19 110/60 90 Room Air 10/31 1431 97.7 87 18 108/64 96 Room Air Intake & Output 11/01 1600 11/01 0800 11/01 0000 Intake Total 140 50 Output Total Balance 140 50 Intake, IV 20 Intake, Oral 120 50 Physical Exam General Appearance: Alert, Oriented X3, Cooperative, No Acute Distress Neck: Supple Cardiovascular: Regular Rate, Normal S1, Normal S2, No Murmurs Lungs: Clear to Auscultation, Normal Air Movement Abdomen: Normal Bowel Sounds, Soft, No Tenderness Extremities: No Edema, Normal Pulses Assessment/Plan Assessment: 77 year old female with PMH DM, HTN, emphysema, Depression, Dementia is admitted to the Gen Med service for the evaluation and treatment of UTI and altered mental status. She is doing better. She has dementia at baseline. However, she is alert, oriented and cooperative on interview. Problem List: 1. AMS 2. UTI 3. Dehydration Labs: WBC 6.6 H/H 13.9/40.6 Plt 195 Na 138 K4.5 BUN/Cr 30/1.0 Hgb A1C 6.3 Labs were not sent today Urine analysis was negative in the ED, possibly due to initiation of antiobitics. 1.AMS likely 2/2 UTI in elderly female -The patient is alert and oriented at this time. -She is resolved to her baseline. 2. UTI -Ceftriaxone 1g iv -Urine C&S negative 3. Dehydration-likely 2/2 decreased PO intake with AMS and infection -The patient has been eating and drinking well -Iv fluids discontinued 4. Chronic medical problems -SSI for DM; finger sticks, Continue Memantine The patient is stable and has no residual symptoms and is stable for discharge today DVT prophylaxis: heparin 5000units subcu/ALPS/ambulation Code status: FC Problem List: 1. Dementia 2. Urinary tract infection Pain Ratin Pain Location: na Pain Goal: Remain pain free Pain Plan: none Tomorrow's Labs & Rationales: none Yogesh Mcmahon 11/01/17 1048: Attending MD Review Statement Attending Statement Attending MD Statement: examined this patient, discuss w/resident/PA/WARDROBE TECHNICIAN, agreed w/resident/PA/WARDROBE TECHNICIAN, discussed with family, reviewed EMR data (avail), discussed with nursing, discussed with case mgmt, reviewed images, amended to note Attending Assessment/Plan: Patient seen/examined bedside. No new complaints. Patient has dementia at baseline. She is pleasant lady. She is independent at home. Son is primary caregiver. She has completed antibiotics for UTI. Her repeat UA and urine culture negative. Patient is medically stable and vital stable for dsicharge.
[2017-11-01 09:38] VITALS: BP 138/68
--- NOTE | 2017-11-01 10:30 | Discharge Summary ---
Visit Information Visit Dates Admission Date: 10/29/17 Discharge Date: 11/01/17 Hospital Course Course Attending Physician: Yogesh Mcmahon MD Primary Care Physician: Jean Marie OWEN,[facility] Course: 77 year old female with PMH DM, HTN, emphysema, Depression, Dementia was admitted to the Gen Med service at [facility] for treatment of urinary tract infection and altered mental status. She had previously presented to the ED earlier that day and was discharged home on Nitrofurantoin. She had to be brought back to the hospital after she got confused and combative at home. The patient was alert, oriented and cooperative on admission but did display slightconfusion. Rest of the physical exam was benign on admission. VS: T98.4 P74 RR18 BP148/69 Labs: WBC 6.6 H/H 13.9/40.6 Plt 195 Na 138 K4.5 BUN/Cr 30/1.0 Hgb A1C 6.3 UA: Moderate leukocyte esterase; high epithelial cells; negative nitrites. A repeat UA was negative. She was evaluated and treated for the following problems during her hospital course: 1.Altered mental status -The patient was confused on admission. This was attributed to the acute urinary tract infection. -The patient does have a component of Dementia but had returned to her baseline mental status at discharge. 2. UTI -The patient was afebrile with no leukocytosis during the entire course of her hospital stay -Urine cultures were negative\ -The patient was treated with Ceftriaxone 1g iv -She had no residual urinary symptoms at discharge The patient was put on Sliding scale insulin for her diabetes. Her home medications including Aspirin, Losartan, Bupropion and Mematine were continued during her hospital stay/ DVT prophylaxi with heparin 5000units subcu/ALPS/ambulation was administered. She was stable at discharge tolerating oral intake well. Allergies: Coded Allergies: NO KNOWN ALLERGIES (01/21/12) Disposition Summary Disposition Principal Diagnosis: Urinary Tract Infecrtion Additional Diagnosis: Altered Mental Status Discharge Disposition: home or self care Discharge Instructions General Discharge Information Code Status: Full Code Patient's Diet: Regular Diet Patient's Activity: As tolerated Follow-Up Instructions/Appts: The patient was requested to follow up with her primary care provider within a week of discharge. She was requested to keep herself hydrated Medications at Discharge Discharge Medications: Continue taking these medications: Aspirin (Ecotrin*) 81 MG TABLET.DR 1 Tablet ORAL DAILY Comments: Last Taken: 11/01/17 Time: 9:30 AM Cholecalciferol (Vitamin D3) 1,000 UNIT TABLET 2 Tablet ORAL DAILY Comments: NOT GIVEN IN HOSPITAL Prednisone (Prednisone) 5 MG TABLET 1 Tablet ORAL DAILY Qty = 90 Comments: NOT GIVEN IN HOSPITAL Metformin HCl (Metformin HCl) 500 MG TABLET 1 Tablet ORAL DAILY Qty = 90 Comments: NOT GIVEN IN HOSPITAL Losartan Potassium (Losartan Potassium) 25 MG TABLET 1 Tablet ORAL DAILY Qty = 90 Comments: Last Taken: 11/01/17 Time: 9:30 AM Light Mineral Oil/Min Oil/Pf (Retaine Mgd Eye Drops) (Unknown Strength) DROPERETTE Unknown Dose Both Eyes TWICE DAILY Qty = 0 Comments: NOT GIVEN IN HOSPITAL Memantine HCl (Memantine HCl) 5 MG TABLET 5 Milligram ORAL DAILY Qty = 30 Comments: Last Taken: 11/01/17 Time: 9:30 AM Start taking the following new medications: Bupropion HCl (Wellbutrin XL) 150 MG TAB.ER.24H 150 Milligram ORAL DAILY Qty = 30 No Refills Copies To: Jean Marie OWEN,Chapin Robles MD Review Statement Documenting Attending: Salome OWEN,Yogesh
[2017-11-01] MEDS ORDERED: MEMANTINE HCL5 MG PO (10:37)
--- NOTE | 2017-11-01 10:45 | Patient Discharge Instructions ---
Discharge Instructions General Discharge Information You were seen/treated for: Urinary Tract Infection and Confusion Special Instructions: 1. Please schedule an appointment with your primary care doctor within a week of your discharge. 2. Please keep yourself well hydrated by drinking plenty of fluids. Acute Coronary Syndrome Inclusion Criteria At DC or during hospital stay patient has or had the following: ACS DIAGNOSIS No Discharge Core Measures Meds if any: Prescribed or Continued at Discharge Meds if any: NOT Prescribed or Continued at Discharge Congestive Heart Failure Inclusion Criteria At DC or during hospital stay patient has or had the following: CHF DIAGNOSIS No Discharge Core Measures Meds if any: Prescribed or Continued at Discharge Meds if any: NOT Prescribed or Continued at Discharge Cerebrovascular accident Inclusion Criteria At DC or during hospital stay patient has or had the following: CVA/TIA Diagnosis No Discharge Core Measures Meds if any: Prescribed or Continued at Discharge Meds if any: NOT Prescribed or Continued at Discharge Venous thromboembolism Inclusion Criteria VTE Diagnosis No VTE Type NONE VTE Confirmed by (Test) NONE Discharge Core Measures - Per Current guidelines, there needs to be overlap - treatment for the first 5 days of Warfarin therapy. - If discharged on Warfarin prior to 5 days of - overlap therapy, the patient will need to be - assessed for post discharge needs including - *Post discharge parental anticoagulation - *Warfarin and/or parental anticoagulation education - *Follow up date to check INR post discharge At least 5 days overlap therapy as Inpatient No Meds if any: Prescribed or Continued at Discharge Note: Overlap Therapy is Warfarin and Anticoagulant Meds if any: NOT Prescribed or Continued at Discharge
[2017-11-01] MEDS ORDERED: WELLBUTRIN XL150 M2 PO ×2 (11:47→12:24)
== END 2017-11-01 12:44 ==
LOC: ERH 22:45 → ERHI 23:00 → 2NA 23:00 → ERHI 10-30 11:43 → ENRESERV 10-30 17:41 → ENTRNSPT 10-30 19:22 → EDTRNSPT 10-30 19:22 → EDTRNSPTSTS 10-30 19:43 → 2NA 10-30 19:50 → CMPTRNSPT 10-30 19:58 → ENPENDDIS 11-01 12:27 → 2NA 11-01 12:44
PROVIDERS: Hospitalist
DX: N39.0 Urinary tract infection, site not specified (principal); E86.0 Dehydration; F05 Delirium due to known physiological condition; E11.9 Type 2 diabetes mellitus without complications; I10 Essential (primary) hypertension; J43.9 Emphysema, unspecified; F32.9 Major depressive disorder, single episode, unspecified; F03.90 Unspecified dementia, unspecified severity, without behavioral disturbance, psychotic disturbance, mood disturbance, and anxiety; Z79.82 Long term (current) use of aspirin; Z79.84 Long term (current) use of oral hypoglycemic drugs; F17.200 Nicotine dependence, unspecified, uncomplicated
CPT/HCPCS: 81003; 82436; 87086; 96372; 96374; 97116-GP; 97161-GP; G0378; G8978-GP; G8979-GP; G8980-GP; J0696; J1630; J1644

== ENCOUNTER 2017-12-02 09:45 | Inpatient (IN) | payer OTHER ==
[~2017-12-02] VITALS: Ht 152.4 cm; Wt 36.7 kg
[~2017-12-02 09:45] MED LIST changes: +BUPROPION XL300 M1 PO; +LOSARTAN POTASS25 M1 PO; +MEMANTINE HCL5 MG PO; +METFORMIN HCL500 M3 PO; +PREDNISONE5 M1 PO; +RETAINE MGD EY1 EACH OU; +VITAMIN D2000 UNIT PO; +WELLBUTRIN XL150 M2 PO
--- NOTE | 2017-12-02 09:51 | ED GENERAL ADULT ---
History of Present Illness General Chief Complaint: Altered Mental Status Stated Complaint: AMS Source: patient, EMS Exam Limitations: clinical condition Vital Signs & Intake/Output Vital Signs & Intake/Output Vital Signs Date Time Temp Pulse Resp B/P B/P Pulse O2 O2 Flow FiO2 Mean Ox Delivery Rate 12/02 1205 68 18 174/80 97 Room Air 12/02 1001 95.8 67 16 172/92 98 Room Air Allergies Coded Allergies: NO KNOWN ALLERGIES (01/21/12) Reconcile Medications Aspirin (Ecotrin*) 81 MG TABLET.DR 1 TAB PO DAILY HEART (Reported) Bupropion HCl (Wellbutrin XL) 150 MG TAB.ER.24H 150 MG PO DAILY DEPRESSION Cholecalciferol (Vitamin D3) 1,000 UNIT TABLET 2 TAB PO DAILY SUPPLEMNT ( Reported) Light Mineral Oil/Min Oil/Pf (Retaine Mgd Eye Drops) (Unknown Strength) DROPERETTE (Unknown Dose) OU BID BOTH EYES (Reported) Losartan Potassium 25 MG TABLET 1 TAB PO DAILY BP (Reported) Memantine HCl 5 MG TABLET 5 MG PO DAILY DEMENTIA (Reported) Metformin HCl 500 MG TABLET 1 TAB PO DAILY DM (Reported) Prednisone 5 MG TABLET 1 TAB PO DAILY STEROID (Reported) Triage Nurses Notes Reviewed? yes HPI: 77-year-old female presents from home with 2 days of altered mental status. Per EMS the patient is unable to get up and go to the bathroom which she normally does by herself. She also does not recognize her son. Patient has no complaints. She denies headache, weakness, chest pain, shortness of breath, nausea vomiting, dysuria, changes in bowel habits, chills or fevers. Past History Travel History Traveled to [place] past 21 day No Medical History Any Pertinent Medical History? 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 No Review of Systems Review of Systems Constitutional: Reports: no symptoms, see HPI. EENTM: Reports: no symptoms. Respiratory: Reports: no symptoms. Cardiovascular: Reports: no symptoms. GI: Reports: no symptoms. Genitourinary: Reports: no symptoms. Musculoskeletal: Reports: no symptoms. Skin: Reports: no symptoms. Neurological/Psychological: Reports: no symptoms. Hematologic/Endocrine: Reports: no symptoms. Immunologic/Allergic: Reports: no symptoms. All Other Systems: Reviewed and Negative Physical Exam Physical Exam General Appearance: no apparent distress, comfortable Comments: Gen.: Well-nourished, well-developed, no acute respiratory distress. Head: Normocephalic, atraumatic. Eyes: Normal inspection bilaterally Ears: Normal inspection bilaterally Nose: Normal inspection Throat/mouth : Dry mucous membranes Neck: Supple, full range of motion, no goiter Heart: Regular rate and rhythm, no murmurs rubs or gallops Lungs: Clear to auscultation bilaterally with normal air entry Chest: Nontender Back: Normal range of motion Abdomen: Soft, nontender, nondistended, normal bowel sounds Extremities: Normal range of motion grossly, equal radial pulses, no cyanosis clubbing or edema Neurologic: Cranial nerves grossly intact, speech is clear, deep tendon reflexes intact. Strength is 3+ bilaterally upper and lower extremities. Skin: warm and dry, with delayed skin turgor and capillary refill. Psychiatric: Calm, cooperative, no apparent delusions or hallucinations, alert to person but not place or time. Core Measures ACS in differential dx? No CVA/TIA Diagnosis: No Sepsis Present: No Sepsis Focused Exam Completed? No Progress Differential Diagnoses I considered the following diagnoses in my evaluation of the patient: Urinary tract infection, upper respiratory tract infection, dehydration Plan of Care: Orders Procedure Date/time Status Hoang, Insertion/Removal/Asses 12/02 1314 Active CULTURE,URINE 12/02 0949 Active BLOOD CULTURE 12/02 948 Active URINALYSIS 12/02 948 Complete TROPONIN LEVEL 12/02 948 Complete LACTIC ACID 12/02 0849 Complete COMPREHENSIVE METABOLIC PANEL 12/02 948 Complete CBC WITHOUT DIFFERENTIAL 12/02 948 Complete EKG 12/02 948 Active Current Medications Sig/Louisa Start time Last Medication Dose Stop Time Status Admin Sodium Chloride 1,000 ML ONCE ONE 12/02 1000 AC 12/02 (Normal Saline 0.9%) 12/02 1759 1025 Laboratory Tests 12/02/17 1249: Lactic Acid Cancelled 12/02/17 1044: Urinalysis MOD H, Urine Color YEL, Urine Clarity HAZY H, Urine pH 7.0, Ur Specific [place] 1.020, Urine Protein NEG, Urine Ketones NEG, Urine Nitrite NEG, Urine Bilirubin NEG, Urine Urobilinogen 0.2, Ur Leukocyte Esterase NEG, Ur Microscopic SEDIMENT EXAMINED, Ur Epithelial Cells OCCAS, Urine Hemoglobin NEG, Urine Glucose NEG 12/02/17 1011: Anion Gap 8, Estimated GFR > 60, BUN/Creatinine Ratio 25.7 H, Glucose 115 H, Lactic Acid 1.4, Calcium 9.4, Total Bilirubin 0.7, AST 24, ALT 32, Alkaline Phosphatase 139 H, Troponin I < 0.01, Total Protein 6.3, Albumin 3.7, Globulin 2.6, Albumin/Globulin Ratio 1.4, CBC w Diff NO MAN DIFF REQ, RBC 4.47, MCV 94.2, MCH 31.4 H, MCHC 33.3, RDW 13.3, MPV 7.3 L, Gran % 85.8 H, Lymphocytes % 8.1 L, Monocytes % 5.8, Eosinophils % 0.2, Basophils % 0.1, Absolute Granulocytes 5.9, Absolute Lymphocytes 0.6 L, Absolute Monocytes 0.4, Absolute Eosinophils 0 , Absolute Basophils 0 Microbiology 12/02 1044 URINE ROUT: Urine Culture - RECD 12/02 1011 BLOOD: Blood Culture - RES 12/02 948 BLOOD: Blood Culture - ORD Initial ED EKG: normal axis, Sinus rhythm of 64. U wave in aVL, v3, v4, v5, v6 which are present on prior EKG. MAT which is also present on prior ECG. No STEMI. Prior EKG: unchanged Departure Departure Disposition: STILL A PATIENT Condition: Stable Clinical Impression Primary Impression: Metabolic encephalopathy Secondary Impressions: Dehydration Referrals: Jean Marie OWEN,Chapin Lara (PCP/Family) Departure Forms: Customer Survey General Discharge Information Critical Care Note Critical Care Note Critical Care Time: non-applicable
[2017-12-02 10:22] LABS: ABSOLUTE BASOPHIL COUNT 0 /CUMM (0.0-0.2); ABSOLUTE EOSINOPHIL COUNT 0 /CUMM (0.0-0.7); ABSOLUTE GRANULOCYTE CT 5.9 /CUMM (1.4-6.5); ABSOLUTE LYMPH COUNT 0.6 /CUMM (1.2-3.4); ABSOLUTE MONOCYTE COUNT 0.4 /CUMM (0.10-0.60); BASOPHIL % 0.1 % (0.0-2.0); EOSINOPHIL % 0.2 % (0-5); GRANULOCYTE % 85.8 % (42.2-75.2); HEMATOCRIT 42.1 % (37-47); MEAN CORPUSCULAR HGB 31.4 PG (27.0-31.0); MEAN CORPUSCULAR HGB CONC 33.3 G/DL (33.0-37.0); MEAN CORPUSCULAR VOLUME 94.2 FL (81.0-99.0); MEAN PLATELET VOLUME 7.3 FL (7.4-10.4); PLATELET COUNT 199 /CUMM (130-400); RBC DISTRIBUTION WIDTH 13.3 % (11.5-14.5); RED BLOOD CELL CT 4.47 /CUMM (4.20-5.40); WHITE BLOOD CELL COUNT 6.9 /CUMM (4.8-10.8)
--- NOTE | 2017-12-02 11:58 | RADIOLOGY REPORT ---
EXAMINATION: XRY-PORTABLE CHEST XRAY CLINICAL INFORMATION: Reason for Study:
Presumptive Dx: AMS
Signs Symptoms: AMS
COMPARISON: October 2017 TECHNIQUE: XRY-PORTABLE CHEST XRAY Lungs and Shirin: Lungs remain hyperinflated with flattening of sacculation of the hemidiaphragm suggesting air trapping disease COPD. Dense nodular density projecting over the LEFT middle lung zone unchanged. Pleura: Normal. Costophrenic angles are sharp. No pneumothorax. Heart: The heart is normal in size. Mediastinum: The mediastinum is within normal limits.. Bones: Skeletal structures included are normal for patient's age. IMPRESSION: Unchanged, air trapping disease COPD.
--- NOTE | 2017-12-02 15:12 | History & Physical ---
Yumiko Platt 12/02/17 1512: General Information and HPI MD Statement: I have seen and personally examined ADELINA FRITZ and documented this H&P. Source of Information: patient, family, caregiver Exam Limitations: unable to give history, clinical condition, dementia History of Present Illness: The patient is a 77 year old F with PMH of dementia, COPD, HTN, DM who presented with a stated chief complaint of altered metal status, anemia, and weakness per family. She lives with one of her daughters and has a caregiver 24 hours/day. They report the patient has had very poor PO intake, increased weakness and confusion x 2 days. She currently is not able to recognize her son. She c/o dizziness with standing and is unable to walk without assist x 2 which is a change from a few days ago. They deny dysuria, N/V/D, constipation, SOB, cough, F/C, chest pain. Allergies/Medications Allergies: Coded Allergies: NO KNOWN ALLERGIES (01/21/12) Home Med list Aspirin (Ecotrin*) 81 MG TABLET.DR 1 TAB PO DAILY HEART (Reported) Bupropion HCl (Wellbutrin XL) 150 MG TAB.ER.24H 150 MG PO DAILY DEPRESSION Cholecalciferol (Vitamin D3) 1,000 UNIT TABLET 2 TAB PO DAILY SUPPLEMNT ( Reported) Light Mineral Oil/Min Oil/Pf (Retaine Mgd Eye Drops) (Unknown Strength) DROPERETTE (Unknown Dose) OU BID BOTH EYES (Reported) Losartan Potassium 25 MG TABLET 1 TAB PO DAILY BP (Reported) Memantine HCl 5 MG TABLET 5 MG PO DAILY DEMENTIA (Reported) Metformin HCl 500 MG TABLET 1 TAB PO DAILY DM (Reported) Compliance With Home Meds: POOR (x 2 days) Past History Travel History Traveled to [place] past 21 day No Medical History Neurological: dementia EENT: NONE Cardiovascular: hypertension Respiratory: COPD Gastrointestinal: NONE Hepatic: NONE Renal: NONE Musculoskeletal: osteoarthritis Psychiatric: anxiety, depression Endocrine: diabetes Blood Disorders: NONE Cancer(s): NONE 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 Home Who Do You Live With? child Services at Home: Home Health Aide Primary Language: German Smoking Status: Current Everyday Smoker (very light smoker currently) Living Will? yes Power of Vest Tailor/HCP? yes Name of POA/HCP: Daughter Other Social History: past heavy smoker Functional Ability ADLs Needs Assist: dressing, eating, toileting, bathing. Ambulation: assist x2 IADLs Needs Assist: shopping, housework, finances, food prep, telephone, transportation, medication admin. Sexual History Past Sexual History Unobtainable at this time Employment History Past Employment History Unobtainable at this time Employment Retired Review of Systems Review of Systems Constitutional: Reports: see HPI, weakness. EENTM: Denies: throat pain, mouth pain. Cardiovascular: Reports: no symptoms. Respiratory: Reports: no symptoms. GI: Denies: no symptoms. Genitourinary: Reports: see HPI. Musculoskeletal: Reports: see HPI. Skin: Reports: see HPI. Neurological/Psychological: Reports: anxiety, confusion, depressed, dementia, weakness. Hematologic/Endocrine: Reports: no symptoms. Immunologic/Allergic: Reports: no symptoms. All Other Systems: Reviewed and Negative Exam & Diagnostic Data Last 24 Hrs of Vital Signs/I&O Vital Signs Date Time Temp Pulse Resp B/P B/P Pulse O2 O2 Flow FiO2 Mean Ox Delivery Rate 12/02 1431 96.5 66 18 172/80 98 Room Air 12/02 1420 98 Room Air 12/02 1205 68 18 174/80 97 Room Air 12/02 1001 95.8 67 16 172/92 98 Room Air Intake & Output 12/02 1600 12/02 0800 12/02 0000 Intake Total Output Total 200 Balance -200 Output, Urine 200 Physical Exam General Appearance No Acute Distress, confused Skin coccyx pressure ulcer stage 2 Skin Temp/Moisture Exam: Warm/Dry Sepsis Skin Exam (color): Pale HEENT Atraumatic, dry mucous membranes Cardiovascular Regular Rate Lungs Clear to Auscultation Abdomen Soft, No Tenderness, hypoactive BS all quadrants Extremities No Edema, No Tenderness/Swelling Assessment/Plan Assessment: 77 year old female with PMH of HTN, DM, dementia, COPD admitted with dehydration , change in mental status and weakness. CBC and chemistries are not remarkable. She does not exhibit any focal signs or symptoms of infection. We have started IV hydration with D5% NS, urine and blood cultures are pending. Her EKG showed increased QT interval from prior results one month ago, we will continue to monitor with follow up EKG tomorrow morning. Dehydration -Continue IVF D51/2 NS at 75mL/hr x 1 liter Diabetes -low-dose sliding scale coverage -hold oral home medication for now HTN -BP elevated, start home dose losartan now Delirium -Seroquel 12.5mg orally daily PRN -maintain fall risk precautions/bed alarm Nutrition -Regular diet as tolerated -aspiration precautions -Swallow evaluation ordered Weakness -PT eval and treat -maintain fall risk precautions/bed alarm Pressure Ulcer -Wound consult ordered -Turn and reposition Q2 hours Border line prolonged QT interval -follow up EKQ in AM DVT prophylaxis -40mg lovenox SC daily Code status -DNR/DNI As Ranked By This Provider Problem List: 1. Dementia 2. Dehydration Core Measures/Misc (11/26) Acute Coronary Syndrome ACS Diagnosis: No Congestive Heart Failure Congestive Heart Failure Diagnosis No Cerebrovascular Accident CVA/TIA Diagnosis: No VTE (View Protocol) VTE Risk Factors Immobility No Mechanical VTE Prophylaxis d/t Fall Risk No VTE Pharm Prophylaxis d/t NA PharmProphylax ordered Sepsis (View protocol) Sepsis Present: No If YES complete Sepsis Event Note If YES complete Sepsis Event Note Resident Review Statement Resident Statement: examined this patient, discussed with family, reviewed EMR data (avail) Stacy Felipe MD 12/02/17 1735: Core Measures/Misc (11/26) Sepsis (View protocol) If YES complete Sepsis Event Note If YES complete Sepsis Event Note Attending MD Review Statement Attending Statement Attending MD Statement: examined this patient, discuss w/resident/PA/FAGOT HEATER HELPER, agreed w/resident/PA/FAGOT HEATER HELPER, discussed with family, reviewed EMR data (avail), discussed with nursing, amended to note Attending Assessment/Plan: Patient seen and examined. discussed with family in detail at the bedside. I have reviewed and agree with the history and physical as documented above. Patient appears to be very pleasant lady, she does have facial periods of appropriate mentation before she reverts back to be confused given inappropriate responses to questioning. her daughters report that despite her advanced dementia able to care for her at home with get 24 hour caregivers however over the past few days she has been deteriorating with poor oral intake and decreasing mobility. She is also has not slept well over the past 24-48 hours. She shows no focal neurologic deficit. She shows no overt evidence of an infectious process on examination or laboratory data. She has no electrolyte imbalance. A physical exam and laboratory data are suggestive of some dehydration which is not unexpected given the history presented by the family. Problems: 1. Delirium; with underlying advanced dementia. 2. Failure to thrive; secondary to above 3. Dehydration; this has resulted from the above conditions and also likely worsening this. 4. Insomnia; also as a result of above and also worsening her delirium. 5. History of depression. 6. COPD; currently stable. 7. Tvg-kalaspj-mnixnczzo diabetes mellitus. 8. Hypertension Plan: -Admit to inpatient medical service. -IV hydration with D5 half normal saline at 100 cc an hour for 1 L. -Regular diet as tolerated. Maintain aspiration precautions at all times. -Hold her oral hypoglycemic medications. low-dose insulin sliding scale coverage. -Recommend low-dose Seroquel 12.5 mg orally daily as needed agitation give one dose now. -Administer melatonin 5 mg at bedtime daily. -Her blood pressure is currently elevted. Resume her oral hypertenion regimen.
[2017-12-02 16:30] VITALS: BP 170/80
--- NOTE | 2017-12-02 17:31 | Admission Certification ---
Admission Certification Certification Statement - As attending physician, I certify that at the time of - admission, based on clinical presentation, severity of - symptoms, need for further diagnostic testing and - therapeutic interventions, and risk of adverse outcomes - without in-hospital treatment, in my clinical assessment, - this patient requires an acute hospital stay for a minimum - of two nights or longer. I have also considered psychsocial - factors such as support system, advanced age, financial - issues, cognitive issues, and failed out-patient treatments, - past re-admission history, safety of patient, and lack of - compliance as applicable. Specific rationale supporting this admission is: Patient requires hospitalization for further evaluation of her altered mentation.
[2017-12-02 20:29] VITALS: BP 179/80
[2017-12-03 06:10] VITALS: BP 142/70; BP 172/70
[2017-12-03] MEDS ORDERED: WELLBUTRIN XL150 M2 PO (09:03)
--- NOTE | 2017-12-03 09:51 | PN- Gen Med ---
Yumiko Platt 12/03/17 0950: Assessment/Plan Medical Assessment: 77 year old female with PMH of HTN, DM, dementia, COPD admitted yesterday with dehydration, change in mental status and weakness. She is obtunded this morning; this may be due to receiving seroquel last night for agitation. We are getting a CT head to rule out stroke. ABG, chemistries and cultures are noncontributory thus far. There is a concern for aspiration PNA due to her mental status; maintain risk for aspiration precautions with HOB 30degrees or greater. Problem List: 1. Dementia 2. Dehydration 3. 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 Pressure ulcer Plan: Dehydration -Continue IVF D51/2 NS at 75mL/hr x 1 liter with addition of 40mEq K Hypokalemia -40mEq Potassium added to IVFs -Magnesium WNL Diabetes - continue low-dose sliding scale coverage -hold oral home medication for now HTN -SBP in the 170s since admit, increase losartan to 50mg PO daily -IVP hydralazine conditional order for SBP >160 Somnolence -Seroquel 12.5mg QHS PRN dose changed to 6.25mg -CT Head non-con - pending -ABG WNL -Ca+ WNL Delirium -Seroquel 6.25mg QHS PRN -maintain fall risk precautions/bed alarm Risk of Aspiration PNA -maintain aspiration precautions, keep HOB 30 degrees or > -NPO pending swallow eval -sputum culture pending Nutrition -NPO pending swallow eval Weakness -PT eval and treat -maintain fall risk precautions/bed alarm Pressure Ulcer -Wound consult ordered -Turn and reposition Q2 hours Border line prolonged QT interval -repeat EKQ showed improvement now WNL -avoid medications that may increase QTc DVT prophylaxis -40mg lovenox SC daily Code status -DNR/DNI Adendum: CT head showed a massive intraparenchymal hemorrhage within the right cerebral hemisphere, the family has decided to transition the patient to inpatient hospice. Code status has changed to Hospice Care. DVT/Prophylaxis: pharmacological Subjective Follow-up For: dehydration, weakness and change in mental status Complaints: pt unable to provide hx Subjective: Patient seen and examined this morning. She was in a deep sleep, unable to arouse. No ROS obtained due to clinical condition. Review of Systems Constitutional: Reports: see HPI. Comments: unable to obtain ROS due to clinical condition Objective Last 24 Hrs of Vital Signs/I&O Vital Signs Date Time Temp Pulse Resp B/P B/P Pulse O2 O2 Flow FiO2 Mean Ox Delivery Rate 12/03 0800 Room Air 12/03 0610 97.9 77 18 172/70 93 Room Air 12/02 2029 97.7 77 20 179/80 98 Room Air 12/02 1630 97.8 70 20 170/80 95 Room Air 12/02 1431 96.5 66 18 172/80 98 Room Air 12/02 1420 98 Room Air 12/02 1205 68 18 174/80 97 Room Air Intake & Output 12/03 1600 12/03 0800 12/03 0000 Intake Total 600 0 Output Total 1700 1000 Balance -1100 -1000 Intake, IV 600 Intake, Oral 0 0 Number 0 Bowel Movements Output, Urine 1700 1000 Patient 37.195 kg Weight Weight Bed scale Measurement Method Physical Exam General Appearance: Somnolent Skin: No Rashes Skin Temp/Moisture Exam: Warm/Dry HEENT: Atraumatic, PERRLA, dry mucous membranes Cardiovascular: Regular Rate Lungs: diminished air movement BL, limited exam, coarse bronchial breath sounds Abdomen: Soft, hypoactive BS Neurological: unable to assess d/t somnolence Current Medications: Current Medications Sig/Louisa Start time Last Medication Dose Route Stop Time Status Admin Acetaminophen 650 MG Q8 PRN 12/02 1745 AC PO Aspirin Buffered 81 MG DAILY 12/03 09 AC PO Bupropion HCl 150 MG DAILY 12/03 09 AC PO Dextrose/Sodium 1,000 ML Q13H 12/02 1800 DC 12/02 Chloride IV 2249 Enoxaparin Sodium 40 MG DAILY 12/02 1632 AC SC Haloperidol 1 MG ONE TIME PRN 12/02 1745 DC IM 12/02 2300 Hydralazine HCl 10 MG BIDPRN PRN 12/03 0945 AC IV Influenza Virus 0 .STK-MED ONE 12/02 225 DC Vaccine IM Influenza Virus 0.5 ML ONCE ONE 12/02 1815 DC 12/02 Vaccine IM 12/02 1816 2255 Insulin Aspart 0 TIDAC 12/03 0800 AC SC Losartan Potassium 25 MG DAILY 12/02 1712 AC 12/02 PO 2248 Memantine 10 MG BID 12/03 2100 AC PO Memantine 5 MG DAILY 12/03 899 DC PO Metformin HCl 500 MG DAILY 12/03 899 CAN PO Potassium Chloride 40 MEQ Q13H 12/03 929 AC Dextrose/Sodium 1,000 ML IV Chloride Quetiapine Fumarate 6.25 MG AT BEDTIME NEED.. 12/03 0845 AC PO Quetiapine Fumarate 12.5 MG DAILY NEEDED PRN 12/02 1800 DC 12/02 PO 2248 Sodium Chloride 1,000 ML .Q8H 12/02 1615 DC 12/02 IV 1655 Sodium Chloride 1,000 ML ONCE ONE 12/02 1000 DC 12/02 IV 12/02 1759 1025 Last 24 Hrs of Labs/Mics: Laboratory Tests 12/03/17 0916: pH 7.44, pCO2 40, pO2 45 *L, HCO3 26, ABG O2 Sat (Measured) 80.0 L, P-50 (Temp Corrected) N, Carboxyhemoglobin 1.1 L, O2 Concentration % .21, Temperature 97.9 , O2 Delivery Method RA, Phlebotomy Draw Site RIGHT RADIAL 12/03/17 0705: Anion Gap 10, Estimated GFR > 60, BUN/Creatinine Ratio 21.4 12/02/17 1249: Lactic Acid Cancelled Microbiology 12/02 1532 BLOOD: Blood Culture - RAMILA Osorio MD,[place] 12/03/17 1051: Assessment/Plan Medical Plan: Patient seen and examined this morning with JESUS Platt. Patient was lethargic and difficult to arouse. She sounded very gurgly. She was given Seroquel last night. She is an elderly female with past medical history significant for dementia, COPD, HTN, DM who was admitted with altered mental state, agitation, possible delirium. She was lethargic this morning which could be secondary to Seroquel. We obtained the blood gas which showed that she was not hypercarbic and her pH was okay but she was found to be hypoxic. Respiratory therapist performed some suctioning and her O2 sats came up. On vitals, she is afebrile, BP is high. on Exam; lethargic difficult to arouse. poor oral hygiene. cv; s1,s2, rrr resp; gurgling in upper air way. limited exam as pt not cooperative, decreased bs. abd; soft, bs+ ext; no edema. Labs reviewed. A/P: She is an elderly female with past medical history significant for dementia , COPD, HTN, DM who was admitted with altered mental state, agitation, possible delirium. She was lethargic this morning which could be secondary to Seroquel. We obtained the blood gas which showed that she was not hypercarbic and her pH was okay but she was found to be hypoxic. Respiratory therapist performed some suctioning and her O2 sats came up. We will obtain CT of the head to rule out any intracranial causes. As I mentioned the blood gas is not consistent with hypercarbia. This could all be related to Seroquel. Will avoid giving her current dose (12.5mg) of Seroquel and if need be then she will be receiving half the dose that is currently ordered. First preference would be to avoid any medication if possible if but if she really becomes agitated and combative then she can receive very very small dose of Seroquel. We have increased the dose of her losartan. Unfortunately she is very lethargic therefore not able to get medications by mouth. We have ordered as needed hydralazine to better control her blood pressure. That can be given IV as needed. We will repeat her potassium to her fluids. Currently she is getting hydrated with IV fluids. Speech/swallow evaluation is ordered. Aspiration precautions will be recommended. She is a diabetic and currently she is sliding scale insulin with Accu-Cheks. She will be seen by physical therapy once more awake. She is on pharmacologic DVT prophylaxis Objective Last 24 Hrs of Vital Signs/I&O Vital Signs Date Time Temp Pulse Resp B/P B/P Pulse O2 O2 Flow FiO2 Mean Ox Delivery Rate 12/03 0915 95 Room Air 12/03 0800 Room Air 12/03 0610 97.9 77 18 172/70 93 Room Air 12/02 2029 97.7 77 20 179/80 98 Room Air 12/02 1630 97.8 70 20 170/80 95 Room Air 12/02 1431 96.5 66 18 172/80 98 Room Air 12/02 1420 98 Room Air 12/02 1205 68 18 174/80 97 Room Air Intake & Output 12/03 1600 12/03 0800 12/03 0000 Intake Total 600 0 Output Total 1700 1000 Balance -1100 -1000 Intake, IV 600 Intake, Oral 0 0 Number 0 Bowel Movements Output, Urine 1700 1000 Patient 82 lb 0.02 oz Weight Weight Bed scale Measurement Method
[2017-12-03 11:08] VITALS: BP 176/100
[2017-12-03 11:46] VITALS: BP 160/100
--- NOTE | 2017-12-03 12:50 | CT SCAN REPORT ---
CT HEAD WITHOUT CONTRAST CLINICAL INFORMATION: Agitation followed by lethargy. COMPARISON: Head CT 08/21/2017. TECHNIQUE: Contiguous axial imaging was performed from the skull base to vertex without intravenous administration of contrast. FINDINGS: There is a large up to 9 cm intraparenchymal hemorrhage spanning portions of the posterior right frontal lobe, the right parietal lobe, the right temporal lobe, and portions of the right basal ganglia with significant surrounding edema. There is adjacent subarachnoid hemorrhage within multiple right cerebral sulci and there is large volume intraventricular hemorrhage within the lateral ventricles, the third ventricle, and the fourth ventricle. Ventricular prominence is not disproportionate to sulcal prominence/there is no evidence of hydrocephalus. There is a small right frontal convexity acute subdural hematoma. There is 1.2 cm leftward midline shift/subfalcine herniation. There is also right-sided uncal herniation with mass effect on the right cerebral peduncle. There are no significant soft tissue findings. Degenerative changes involving the TMJs bilaterally. The imaged paranasal sinuses and the mastoid air cells are clear. IMPRESSION: - There is a massive intraparenchymal hemorrhage within the right cerebral hemisphere measuring up to 9 cm in dimension with significant surrounding edema. There is also moderate volume right cerebral sulcal subarachnoid hemorrhage, there is large volume intraventricular hemorrhage without hydrocephalus, there is a small right frontal convexity subdural hematoma. - Local mass effect includes significant leftward subfalcine herniation/midline shift measuring up to 1.2 cm as well as right-sided uncal herniation with mass effect on the right cerebral peduncle. Critical findings were discussed with Keyona Osorio MD at 12:44 PM on 12/03/2017.
[2017-12-03 15:10] VITALS: BP 170/100
--- NOTE | 2017-12-03 17:02 | Discharge Summary ---
See Addendum Visit Information Visit Dates Admission Date: 12/02/17 Discharge Date: Hospital Course Course Attending Physician: Keyona Osorio MD Primary Care Physician: Chapin Aj MD Hospital Course: 77 year old female with PMH of HTN, DM, dementia, and COPD admitted yesterday with dehydration, change in mental status and weakness. She was started on IV hydration, blood and urine cutures were ordered. Last night she became very agitated and was given 12.5 mg seroquel PO. This morning she was not arousable. We obtained a CT head to rule out stroke. Results of the CT head showed a massive intraparenchymal hemorrhage within the right cerebral hemisphere. The family was notified and made the decision to transition the patient to inpatient hospice. The patient is being discharged from the hospitalist service to admit to inpatient hospice service. Complications: See hospital course Allergies: Coded Allergies: NO KNOWN ALLERGIES (01/21/12) Disposition Summary Disposition Principal Diagnosis: intraparenchymal hemorrhage Additional Diagnosis: dehydration, dementia, HTN, DM Discharge Disposition: hospice - medical facilit Discharge Instructions General Discharge Information Code Status: Hospice Patient's Diet: Not indicated, hospice care Patient's Activity: Not indicated, hospice care Follow-Up Instructions/Appts: Not indicated, hospice care Medications at Discharge Discharge Medications: Stop taking the following medications: Prednisone (Prednisone) 5 MG TABLET ORAL DAILY Qty = 90 Bupropion HCl (Wellbutrin XL) 150 MG TAB.ER.24H ORAL DAILY Qty = 30 Copies To: Chapin Aj MD New: Bupropion HCl (Wellbutrin XL) 150 MG TAB.ER.24H 300 Milligram ORAL DAILY Qty = 30 Copies To: Chapin Aj MD
== END 2017-12-03 18:02 | disposition hospice, home (50) | DRG 65 ==
LOC: ERH 09:45 → 2NA 14:01 → ERHI 14:01 → ENRESERV 15:43 → ENTRNSPT 16:11 → 2NA 16:23 → CMPTRNSPT 16:42 → 2NA 18:34
PROVIDERS: Emergency Medicine
DX: I61.9 Nontraumatic intracerebral hemorrhage, unspecified (principal); F05 Delirium due to known physiological condition; E86.0 Dehydration; Z51.5 Encounter for palliative care; F03.90 Unspecified dementia, unspecified severity, without behavioral disturbance, psychotic disturbance, mood disturbance, and anxiety; I10 Essential (primary) hypertension; E11.9 Type 2 diabetes mellitus without complications; Z79.84 Long term (current) use of oral hypoglycemic drugs; F17.210 Nicotine dependence, cigarettes, uncomplicated; Z66 Do not resuscitate; F32.9 Major depressive disorder, single episode, unspecified; G47.00 Insomnia, unspecified; J44.9 Chronic obstructive pulmonary disease, unspecified; E87.6 Hypokalemia; L89.159 Pressure ulcer of sacral region, unspecified stage; R09.02 Hypoxemia
CPT/HCPCS: 2NAP; 36592; 71045; 81001; 82436; 87040; 87070; 87086; 93005; 93010; J0360; J1630; J1650; J7042; Q2036

== ENCOUNTER 2017-12-03 18:12 | Inpatient (IN) | payer OTHER ==
--- NOTE | 2017-12-03 18:30 | History & Physical ---
General Information and HPI Chief Complaint: Altered mental status. Source of Information: family Exam Limitations: no limitations History of Present Illness: 77 year old female with PMH of HTN, DM, dementia, and COPD admitted yesterday with dehydration, change in mental status and weakness. Last night she became very agitated and was given 12.5 mg seroquel PO. This morning she was not arousable. CT head showed a massive intraparenchymal hemorrhage within the right cerebral hemisphere. The family was notified and made the decision to transition the patient to inpatient hospice. 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 Patient is lethragic at this time. Review of Systems Constitutional: Reports: see HPI. Exam & Diagnostic Data Last 24 Hrs of Vital Signs/I&O Intake & Output 12/04 0800 12/04 0000 12/03 1600 Intake Total 0 Output Total 400 Balance -400 Intake, Oral 0 Output, Urine 400 Physical Exam: General Appearance Lethargic with no distress Skin coccyx pressure ulcer stage 2 Skin Temp/Moisture Exam: Warm/Dry Sepsis Skin Exam (color): Pale HEENT Atraumatic, dry mucous membranes Cardiovascular Regular Rate, S1S2 Lungs Clear to Auscultation Abdomen Soft, No Tenderness, hypoactive BS all quadrants Extremities No Edema, No Tenderness/Swelling Neuro: Patient is lethargic. Assessment/Plan Assessment: 77 year old female with PMH of HTN, DM, dementia, and COPD admitted yesterday with dehydration, change in mental status and weakness. CT head showed a massive intraparenchymal hemorrhage within the right cerebral hemisphere. The family was notified and made the decision to transition the patient to inpatient hospice for hemorrhage CVA. Plan: In patient hospice. HAIR BLENDER. DNR/DNI.
[2017-12-04 06:47] VITALS: BP 158/62
--- NOTE | 2017-12-04 14:21 | PN- Hospice ---
Subjective Subjective: Pt. appears comfortable, unresponsive. Family in room. Received morphine x 3 since 11pm for tachypnea with fair effect. Making small amounts urine. Review of Systems Constitutional: Reports: see HPI. Objective Last 24 Hrs of Vital Signs/I&O Vital Signs Date Time Temp Pulse Resp B/P B/P Pulse O2 O2 Flow FiO2 Mean Ox Delivery Rate 12/04 0647 98.0 91 26 158/62 90 Room Air Intake & Output 12/04 1600 12/04 0800 12/04 0000 Intake Total 0 0 Output Total 30 400 Balance -30 -400 Intake, IV 0 Intake, Oral 0 0 Number 0 Bowel Movements Output, Urine 30 400 Physical Exam General Appearance: well developed/nourished, no apparent distress, sedated Head: atraumatic Ears, Nose, Throat: dry oral mucosa Respiratory: no respiratory distress, rhonchi (anteriorly), RR 20-22 Cardiovascular: regular rate/rhythm Extremities: no edema Skin: warm/dry Other Physical Findings: lomeli with clear Current Medications: Current Medications Sig/Louisa Start time Last Medication Dose Route Stop Time Status Admin Acetaminophen 650 MG Q4P PRN 12/03 184 AC CA Artificial Tears 2 GTT Q2P PRN 12/03 184 AC OU Bisacodyl 10 MG DAILY NEEDED PRN 12/03 184 AC CA Glycerin 2 SPRAY Q4P PRN 12/03 184 AC PO Glycerin/Mineral Oil 1 SULEMAN Q8P PRN 12/03 184 AC TOP Glycopyrrolate 400 MCG Q2 HRS NEEDED PRN 12/03 184 AC SC Lorazepam 0.5 MG Q4 12/03 2200 CAN IV Lorazepam 0.5 MG Q4P PRN 12/03 1900 AC IV Morphine Sulfate 2 MG Q2 HRS NEEDED PRN 12/03 184 AC 12/04 IV 1323 Scopolamine HBr 1 PAT Q72H 12/04 1999 AC 12/03 TOP 2021 Assessment/Plan Hospice Assessment/Recommendations: 77 year old female with PMH of HTN, DM, dementia, and COPD admitted to hospice with massive intraparenchymal hemorrhage within the right cerebral hemisphere. Comfortable with good response to morphine but would benefit from scheduling doses. Start morphine 2 mg IV every 4 hours and continue as needed dosing. Secretions-continue scopolamine and give robinul. discussed with nursing. Problem List: 1. Hemorrhagic cerebrovascular accident (CVA) 2. Hospice care
[2017-12-05 07:05] VITALS: BP 122/56
--- NOTE | 2017-12-05 12:09 | PN- Hospice ---
Subjective Subjective: Pt. unresponsive, with periods of apnea. Family at bedside. No urine output. Appears comfortable on scheduled morphine. Fever to 103.4, came down with rectal APAP to 99.9. Review of Systems Constitutional: Reports: see HPI. Objective Last 24 Hrs of Vital Signs/I&O Vital Signs Date Time Temp Pulse Resp B/P B/P Pulse O2 O2 Flow FiO2 Mean Ox Delivery Rate 12/05 0949 103.4 12/05 0705 100.2 112 16 122/56 64 Intake & Output 12/05 1600 12/05 0800 12/05 0000 Intake Total 0 0 Output Total 0 25 Balance 0 -25 Intake, Oral 0 0 Output, Urine 0 25 Physical Exam General Appearance: Actively dying with periods of apnea Ears, Nose, Throat: dry oral mucosa Respiratory: no respiratory distress, unlabored with periods of apnea Cardiovascular: tachycardia Extremities: cool Skin: pallor Current Medications: Current Medications Sig/Louisa Start time Last Medication Dose Route Stop Time Status Admin Acetaminophen 500 MG Q6P PRN 12/05 0915 AC IV Acetaminophen 650 MG Q4P PRN 12/03 1845 AC 12/05 MD 0949 Artificial Tears 2 GTT Q2P PRN 12/03 1845 AC OU Bisacodyl 10 MG DAILY NEEDED PRN 12/03 1845 AC MD Glycerin 2 SPRAY Q4P PRN 12/03 1845 AC PO Glycerin/Mineral Oil 1 SULEMAN Q8P PRN 12/03 1845 AC TOP Glycopyrrolate 400 MCG Q2 HRS NEEDED PRN 12/04 1730 AC 12/04 IV 1743 Glycopyrrolate 400 MCG Q2 HRS NEEDED PRN 12/03 184 DC SC Lorazepam 0.5 MG Q4P PRN 12/03 1900 AC IV Morphine Sulfate 2 MG Q4 12/04 1800 AC 12/05 IV 0944 Morphine Sulfate 2 MG Q2 HRS NEEDED PRN 12/03 1845 AC 12/04 IV 1618 Scopolamine HBr 1 PAT Q72H 12/04 1999 12/03 TOP 2021 Assessment/Plan Hospice Assessment/Recommendations: 77 year old female with PMH of HTN, DM, dementia, and COPD admitted to hospice with massive intraparenchymal hemorrhage within the right cerebral hemisphere. Actively dying. Continue same plan. Support to family who are coping appropriately. Problem List: 1. Hemorrhagic cerebrovascular accident (CVA) 2. Hospice care
[2017-12-06 07:01] VITALS: BP 90/52
--- NOTE | 2017-12-06 11:50 | PN- Gen Med ---
Dereje Zarate 12/06/17 1150: Assessment/Plan Medical Assessment: Patient is a 77 year old female with significant PMH of HTN, DM, dementia, and COPD who was admitted to inpatient hospice on 12/03/2017 for initiation of comfort care following a massive intraparenchymal hemorrhage within the right cerebral hemisphere. Problem List: 1. Hemorrhagic cerebrovascular accident (CVA) Plan: 1. Hemorrhagic cerebrovascular accident: - Continue delivery of comfort/hospice care. - Continue Morphine PRN pain. - Continue Ativan PRN agitation. - Continue Scopolamine patch/Robinul PRN management of secretions. Subjective Subjective: Patient is unresponsive at this time to verbal/tactile stimuli however appears comfortable in bed in no acute distress. Respirations remain agonal. Urine output remains negligible. Patient remains afebrile this AM. Family remains at bedside. Review of Systems Constitutional: Denies: see HPI. Objective Last 24 Hrs of Vital Signs/I&O Vital Signs Date Time Temp Pulse Resp B/P B/P Pulse O2 O2 Flow FiO2 Mean Ox Delivery Rate 12/06 0701 98.2 95 16 90/52 50 Intake & Output 12/06 1600 12/06 0800 12/06 0000 Intake Total 50 Output Total Balance 50 Intake, IV 50 Physical Exam General Appearance: No Acute Distress, Unresponsive to verbal/tactile stimuli. Skin: Pallor Skin Temp/Moisture Exam: Cool/Dry HEENT: Mucous membranes remain pink/dry. Cardiovascular: Tachycardia Lungs: Clear to Auscultation, Unlabored agonal respirations with periods of apnea noted. Neurological: Unresponsive. Extremities: Cool to touch. Other Physical Findings: Indwelling Hoang catheter remains intact and draining negligible amounts of concentrated dana colored urine. Current Medications: Current Medications Sig/Louisa Start time Last Medication Dose Route Stop Time Status Admin Acetaminophen 500 MG Q6P PRN 12/05 0915 AC IV Acetaminophen 650 MG Q4P PRN 12/03 1845 AC 12/05 IN 0949 Artificial Tears 2 GTT Q2P PRN 12/03 1844 AC OU Bisacodyl 10 MG DAILY NEEDED PRN 12/03 184 AC IN Glycerin 2 SPRAY Q4P PRN 12/03 184 AC PO Glycerin/Mineral Oil 1 SULEMAN Q8P PRN 12/03 184 AC TOP Glycopyrrolate 400 MCG Q2 HRS NEEDED PRN 12/04 1730 AC 12/04 IV 1743 Lorazepam 0.5 MG Q4P PRN 12/03 1900 12/06 IV 0559 Morphine Sulfate 2 MG Q4 12/04 1800 12/06 IV 1014 Morphine Sulfate 2 MG Q2 HRS NEEDED PRN 12/03 1845 12/04 IV 1618 Scopolamine HBr 1 PAT Q72H 12/04 1999 12/03 [facility] 2021 Devon OWEN,[place] 12/06/17 1216: Assessment/Plan Medical Plan: Patient seen and examined, breathing is more agonal now. patient otherwise looks comfortable. She had Massive Intracranial bleed. Continue current hospice care. Continue all current meds for comfort.
--- NOTE | 2017-12-07 12:15 | Discharge Summary ---
Visit Information Visit Dates Admission Date: 12/03/17 Discharge Date: 12/06/17 Hospital Course Course Attending Physician: Keyona Osorio MD Primary Care Physician: Jean Marie OWEN,Chapin Lara Hospital Course: Patient is a 77 year old female with significant PMH of HTN, DM, dementia, and COPD who was admitted to inpatient hospice on 12/03/2017 for initiation of comfort care following a massive intraparenchymal hemorrhage within the right cerebral hemisphere. Patient remained hospitalized on inpatient hospice care and received Morphine PRN pain and Ativan PRN agitation. In addition, a Scopolamine patch/Robinul IV PRN were initiated for management of secretions. The patient remained comfortable while hospitalized and was noted to be absent of pulse and respirations on the evening of 12/06/2017. The patient was subsubsequently pronounced by [facility] staff. Condolences were extended to the patient's family who were at her bedside at the time of her passing. certificate completed. Allergies: Coded Allergies: NO KNOWN ALLERGIES (01/21/12) Significant Procedures: Head CT (12/03/2017) Impression: - There is a massive intraparenchymal hemorrhage within the right cerebral hemisphere measuring up to 9 cm in dimension with significant surrounding edema. There is also moderate volume right cerebral sulcal subarachnoid hemorrhage, there is large volume intraventricular hemorrhage without hydrocephalus, there is a small right frontal convexity subdural hematoma. - Local mass effect includes significant leftward subfalcine herniation/midline shift measuring up to 1.2 cm as well as right-sided uncal herniation with mass effect on the right cerebral peduncle. Pertinent Lab Results: None Disposition Summary Disposition Principal Diagnosis: 1. Hemorrhagic cerebrovascular accident Additional Diagnosis: 2. Hypertension 3. T2DM 4. Dementia 5. COPD Discharge Disposition: Discharge Instructions General Discharge Information Code Status: Hospice Patient's Diet: Patient is . Patient's Activity: Patient is . Follow-Up Instructions/Appts: Patient is . Copies To: Jean Marie OWEN,Chapin Robles MD Review Statement Documenting Attending: Keyona Osorio MD
== END 2017-12-06 17:25 | disposition expired | DRG 66 ==
LOC: 2NA 18:12 → ENTRNSPT 12-06 20:27 → EDTRNSPTSTS 12-06 20:30 → CMPTRNSPT 12-06 20:47
DX: I61.2 Nontraumatic intracerebral hemorrhage in hemisphere, unspecified (principal); Z51.5 Encounter for palliative care; J44.9 Chronic obstructive pulmonary disease, unspecified; E86.0 Dehydration; F03.90 Unspecified dementia, unspecified severity, without behavioral disturbance, psychotic disturbance, mood disturbance, and anxiety
CPT/HCPCS: 2NASP